=== PATIENT | female | born 1930 | race Hispanic/Latino ===

== ENCOUNTER 2018-04-10 10:40 | Inpatient (IN) | payer MEDICARE ==
[2018-04-10] MEDS ORDERED: cefTRIAXone IV 1 gm in Dextros 50 ML IVPB STA (10:57)
[2018-04-10] MEDS ORDERED: Piperacill/Tazo 3.375gm in Dex 3.375 GM/50 ML BAG IVPB STA (10:57)
--- NOTE | 2018-04-10 11:05 | C.PDOC ---
History Of Present Illness 87 y/o female, brought in by EMS s/p fall and decreased mentation at home. Patient presents febrile and tachycardia (SIRS criteria met, code sepsis called). As per daughter, she has chronic back pain and vertigo and occasionally falls. Patient fell today, unclear how or why. Last time daughter saw her was last week when they went to see Dr. Dumont, patient was fine that time. Daughter last spoke to her yesterday and patient was still fine. - HPI Time Seen by Provider: 04/10/18 10:51 Chief Complaint (Nursing): Trauma History Per: Family (Daughter) History/Exam Limitations: no limitations Onset/Duration Of Symptoms: Hrs Past Medical History Reviewed: Historical Data, Nursing Documentation, Vital Signs Vital Signs: Last Vital Signs Temp 102.7 F H 04/10/18 10:50 Pulse 113 H 04/10/18 10:50 Resp 33 H 04/10/18 10:50 BP 144/93 H 04/10/18 10:50 Pulse Ox 84 L 04/10/18 10:50 - Medical History PMH: Osteoporosis Denies: Chronic Kidney Disease Family History: States: No Known Family Hx - Social History Hx Alcohol Use: No Hx Substance Use: No Review Of Systems Review Of Systems: ROS cannot be obtained secondary to pt's inabilty to answer questions. (due to mental status) Physical Exam - Physical Exam Appears: Non-toxic, No Acute Distress Skin: Warm, Dry Head: Atraumatic, Normacephalic Eye(s): bilateral: Normal Inspection Oral Mucosa: Moist Neck: Supple Cardiovascular: Rhythm Regular (tachycardic), No Murmur Respiratory: Normal Breath Sounds, No Rales, No Rhonchi, No Wheezing Gastrointestinal/Abdominal: Soft, No Tenderness Extremity: Normal ROM (of all 4 extremities) Extremity: Bilateral: Atraumatic (no external signs of trauma), Normal ROM Neurological/Psych: Normal Motor, Normal Sensation, Slow To Respond With Command, Other (Awake; no focal deficits) ED Course And Treatment - Laboratory Results Result Diagrams: 04/10/18 10:55 04/10/18 10:55 ECG: Interpreted By Me, Viewed By Me ECG Rhythm: Sinus Tachycardia Interpretation Of ECG: No ST elevations or depressions. No flipped T waves. Rate From EC O2 Sat by Pulse Oximetry: 84 (RA) Pulse Ox Interpretation: Abnormal - Other Rad CXR X-Ray: Read By Radiologist Interpretation: Findings: Biapical pleural thickening with upper lobe granulomatous changes. Diffuse increased interstitial lung markings. Linear atelectasis at the right lung base. Enlarged ectatic aorta. Cardiomegaly. Degenerative changes in the spine and shoulders. Right paratracheal airspace opacity may represent prominent vasculature. Impression: Biapical pleural thickening with upper lobe granulomatous changes. Diffuse increased interstitial lung markings. Linear atelectasis at the right lung base. Enlarged ectatic aorta. Cardiomegaly. Degenerative changes in the spine and shoulders. Right paratracheal airspace opacity may represent prominent vasculature. - CT Scan/US Cervical Spine CT Other Rad Studies (CT/US): Read By Radiologist, Radiology Report Reviewed CT/US Interpretation: Findings: Diffuse osteopenia. Severe multilevel degenerative changes throughout the cervical spine. Narrowing at the atlantodental interval with sclerosis and bony hypertrophy. Loss of height of the inferior endplates the C5, C6, C7 vertebral bodies. Prominent multilevel posterior disc osteophyte complexes most prominent at the C3-4, C4-5, C5-6, and C6-7 levels. Anterior osteophytosis most prominent at the C4 thru C6 levels. M ultilevel uncovertebral joint and facet hypertrophy. No significant prevertebral soft tissue swelling. Prominent cerumen noted in the bilateral ear canals. Heterogeneity of the thyroid gland. Atherosclerotic calcification and plaque within the aorta. Impression: No evidence of acute displaced fracture. Severe degenerative changes of the cervical spine. If pain persists, consider correlation with MRI. Lumbar Spine CT Other Rad Studies (CT/US): Read By Radiologist, Radiology Report Reviewed CT/US Interpretation: FINDINGS: Severe anterolisthesis of L5 on S1 with associated prominent pars defects. Severe compression deformities of the T12, L1, L2, L3, and L4 vertebral bodies. These are of indeterminate chronicity. Moderate compression deformities of the T11 and L5 vertebral bodies. These are of indeterminate chronicity. Prominent multilevel posterior disc osteophyte complexes noted at the T12-L1, L1-2, L2-3, L3-4, L4-5 levels. Prominent multilevel lower level facet hypertrophy and sclerosis. Atherosclerotic calcification and plaque within the visualized aorta. Bridging sclerosis of the bilateral SI joints. [place] sacralization the left aspect of the L5 vertebral body. Dense consolidation within the left lower lobe. Tortuous ectatic aorta with atherosclerotic calcification and plaque. Few pancreatic calcifications. Small hiatal hernia. Cardiomegaly. Impression: Indeterminate chronicity multilevel compression deformities of a moderate to severe nature throughout the visualized thoracic and lumbar spine as described. Severe anterolisthesis of L5 on S1 associated prominent pars defects. Additional findings as above. Thoracic Spine CT Other Rad Studies (CT/US): Read By Radiologist, Radiology Report Reviewed CT/US Interpretation: Findings: Please see separate report for evaluation of the cervical and lumbar spines. Severe compression fracture deformities of the T5, T8 T12, and L1 vertebral bodies. Indeterminate chronicity. Moderate compr ession deformities of the T4, T6, and T11 vertebral bodies. Indeterminate chronicity. Multilevel posterior disc osteophyte complexes seen throughout the thoracic spine most prominent at the T3-4, T4-5, T5-6, T8-9, T10-11, T11-12, and T12-L1 levels. Multilevel facet hypertrophy and sclerosis. Patient is rotated in the scanner, markedly limiting evaluation. Biapical pleural thickening in the lung paige. 3 millimeter ground-glass nodule in the right upper lobe. Additional 2 millimeter subpleural nodule along the lateral aspect of the right upper lobe. Focal consolidative changes at the lung bases bilaterally. 1.3 centimeter focal area of nodular consolidation within the right lower lobe. Heterogeneity of the thyroid. Atherosclerotic calcification and plaque within the aorta. Aneurysmal prominence of the ascending aorta measuring 4.2 centimeters. Prevascular lymph node measures 1.3 centimeters. Precarinal lymph node measures 2 1 centimeters. Valvular and atherosclerotic coronary calcifications. Nodular thickening of the adrenals. Small hiatal hernia. Impression: Multiple indeterminate moderate and severe compression deformities throughout the thoracic spine as described above. Additional findings as above. Medical Decision Making Medical Decision Making: Differential Diagnosis: Sepsis/Urosepsis Plan: --VBG --EKG --Labs --Chest XR --UA --O2 NC --Zosyn IV --Rocephin IV --Lactated Ringers 1.5L Urine was normal and CXR unremarkable. Patient had positive troponin. Case discussed with Dr. 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 Progress: CT scans ordered. Patient given aspirin PO. Disposition Discussed With Dr.: Venancio A Fogari Counseled Patient/Family Regarding: Studies Performed, Diagnosis - Disposition Disposition: HOSPITALIZED Disposition Time: 12:06 Condition: GUARDED - Clinical Impression Clinical Impression: Fall, Back pain, Fever, Abnormal laboratory test - Scribe Statement The provider has reviewed the documentation as recorded by the Emma Currie Provider Attestation: All medical record entries made by the Rivkaibsheila were at my direction and personally dictated by me. I have reviewed the chart and agree that the record accurately reflects my personal performance of the history, physical exam, medical decision making, and the department course for this patient. I have also personally directed, reviewed, and agree with the discharge instructions and disposition. Decision To Admit - Pt Status Changed To: Hospital Disposition Of: Inpatient - Admit Certification Admit to Inpatient:: After my assessment, the patient will require hospitalization for at least two midnights. This is because of the severity of symptoms shown, intensity of services needed, and/or the medical risk in this patient being treated as an outpatient. - InPatient: Physician Admission Certification: I certify that this patient requires 2 or more midnights of care for the following reason:: multiple medical problems, fever, abnormal troponin - . Bed Request Type: Telemetry Patient Diagnosis: Fall, Back pain, Fever, Abnormal laboratory test
[2018-04-10 11:11] LABS: BASO % 0.5 % (0.0-2.0); EOS % 0.2 % (0.0-4.0); HEMOGLOBIN 13.8 g/dL (11.0-16.0); LYMPH # 0.6 K/uL (1.0-4.3); LYMPH % 8.4 % (20.0-40.0); MEAN CELL VOLUME 96.2 fL (81.0-99.0); MEAN CORPUSCULAR HEMOGLOBIN 32.4 pg (27.0-31.0); MEAN CORPUSCULAR HGB CONC 33.7 g/dL (33.0-37.0); MEAN PLATELET VOLUME 7.1 fL (7.2-11.7); MONO # 0.4 K/uL (0.0-0.8); MONO % 5.9 % (0.0-10.0); NEUT # 6.3 K/uL (1.8-7.0); NRBC % 0.1 % (0.0-2.0); PLATELET COUNT 157 K/uL (130-400); RBC 4.25 Mil/uL (3.80-5.20); WHITE BLOOD COUNT 7.5 K/uL (4.8-10.8)
[2018-04-10] MEDS ORDERED: Lactated Ringer's 2,000 ML ONE (11:12)
[2018-04-10] MEDS ORDERED: Piperacillin/Tazobact 3.375 gm 100 ML IVPB ONE (11:12)
[2018-04-10 11:14] LABS: VENOUS BLOOD GAS BASE EXCESS 6.6 mmol/L (0.0-2.0); VENOUS BLOOD GAS PCO2 40 mmHg (40-60); VENOUS BLOOD GAS PO2 35 mm/Hg (30-55); VENOUS BLOOD PH 7.49 (7.32-7.43)
[2018-04-10 11:28] LABS: ALB/GLOB RATIO 1.5 (1.0-2.1); ALBUMIN 4.6 g/dL (3.5-5.0); BLOOD UREA NITROGEN 27 mg/dL (7-17); CALCIUM 9.4 mg/dl (8.6-10.4); GFR NON-AFRICAN AMERICAN > 60
[2018-04-10 11:30] LABS: ALT/SGPT 24 U/L (9-52); AST/SGOT 64 U/L (14-36)
[2018-04-10 11:35] LABS: SQUAMOUS EPITHIAL < 1 /hpf (0-5); URINE BILIRUBIN NEGATIVE (NEGATIVE); URINE BLOOD NEGATIVE (NEGATIVE); URINE CLARITY Clear (Clear); URINE COLOR Straw (YELLOW); URINE GLUCOSE (UA) NORMAL (Normal); URINE LEUKOCYTE ESTERASE NEG Leu/uL (Negative); URINE PROTEIN NEGATIVE (NEGATIVE); URINE UROBILINOGEN NORMAL mg/dL (0.2-1.0)
[2018-04-10 11:38] LABS: LYMPHOCYTE 8 % (20-40); MONOCYTE 5 % (0-10); NEUTROPHIL 87 % (50-75); PLATELET ESTIMATE NORMAL (NORMAL); TOTAL CELLS COUNTED 100
[2018-04-10 11:39] LABS: ANISOCYTOSIS SLIGHT; INR 1.2; POLYCHROMIC SLIGHT; PROTHROMBIN TIME 13.1 SECONDS (9.7-12.2)
[2018-04-10 11:42] LABS: B-TYPE NATRIURETIC PEPTIDE 465 pg/mL (0-900)
--- NOTE | 2018-04-10 12:33 | RAD ---
Chest x-ray single frontal view HISTORY: Sepsis. Comparison: None available. Findings: Biapical pleural thickening with upper lobe granulomatous changes. Diffuse increased interstitial lung markings. Linear atelectasis at the right lung base. Enlarged ectatic aorta. Cardiomegaly. Degenerative changes in the spine and shoulders. Right paratracheal airspace opacity may represent prominent vasculature. Impression: Biapical pleural thickening with upper lobe granulomatous changes. Diffuse increased interstitial lung markings. Linear atelectasis at the right lung base. Enlarged ectatic aorta. Cardiomegaly. Degenerative changes in the spine and shoulders. Right paratracheal airspace opacity may represent prominent vasculature.
--- NOTE | 2018-04-10 13:50 | CT ---
CT cervical spine HISTORY: Injury. Fall. Osteoporosis. Comparison: None available. TECHNIQUE: Multiple contiguous axial images through the cervical spine without the use of intravenous contrast. Subsequently, sagittal and coronal reformatted images were obtained. This CT exam was performed using one or more of the following dose reduction techniques: Automated exposure control, adjustment of the mA and/or kV according to patient size, and/or use of iterative reconstruction technique. Findings: Diffuse osteopenia. Severe multilevel degenerative changes throughout the cervical spine. Narrowing at the atlantodental interval with sclerosis and bony hypertrophy. Loss of height of the inferior endplates the C5, C6, C7 vertebral bodies. Prominent multilevel posterior disc osteophyte complexes most prominent at the C3-4, C4-5, C5-6, and C6-7 levels. Anterior osteophytosis most prominent at the C4 thru C6 levels. Multilevel uncovertebral joint and facet hypertrophy. No significant prevertebral soft tissue swelling. Prominent cerumen noted in the bilateral ear canals. Heterogeneity of the thyroid gland. Atherosclerotic calcification and plaque within the aorta. Impression: No evidence of acute displaced fracture. Severe degenerative changes of the cervical spine. If pain persists, consider correlation with MRI.
[2018-04-10 14:13] LABS: VENOUS BLOOD GAS BASE EXCESS 2.1 mmol/L (0.0-2.0); VENOUS BLOOD GAS PCO2 35 mmHg (40-60); VENOUS BLOOD GAS PO2 51 mm/Hg (30-55); VENOUS BLOOD PH 7.47 (7.32-7.43)
--- NOTE | 2018-04-10 14:33 | CT ---
CT lumbar spine HISTORY: Injury. COMPARISON: None available TECHNIQUE: Multiple contiguous axial images were performed through the lumbar spine without the use of intravenous contrast. Subsequently, sagittal and coronal reformatted images were obtained. FINDINGS: Severe anterolisthesis of L5 on S1 with associated prominent pars defects. Severe compression deformities of the T12, L1, L2, L3, and L4 vertebral bodies. These are of indeterminate chronicity. Moderate compression deformities of the T11 and L5 vertebral bodies. These are of indeterminate chronicity. Prominent multilevel posterior disc osteophyte complexes noted at the T12-L1, L1-2, L2-3, L3-4, L4-5 levels. Prominent multilevel lower level facet hypertrophy and sclerosis. Atherosclerotic calcification and plaque within the visualized aorta. Bridging sclerosis of the bilateral SI joints. [place] sacralization the left aspect of the L5 vertebral body. Dense consolidation within the left lower lobe. Tortuous ectatic aorta with atherosclerotic calcification and plaque. Few pancreatic calcifications. Small hiatal hernia. Cardiomegaly. Impression: Indeterminate chronicity multilevel compression deformities of a moderate to severe nature throughout the visualized thoracic and lumbar spine as described. Severe anterolisthesis of L5 on S1 associated prominent pars defects. Additional findings as above.
--- NOTE | 2018-04-10 15:22 | CT ---
CT thoracic spine HISTORY: Osteoporosis. Fall. Comparison: None available Technique: Multiple contiguous axial images were performed through the thoracic spine without the use of intravenous contrast. Subsequently, sagittal and coronal reformatted images were obtained. This CT exam was performed using one or more of the following dose reduction techniques: Automated exposure control, adjustment of the mA and/or kV according to patient size, and/or use of iterative reconstruction technique. Findings: Please see separate report for evaluation of the cervical and lumbar spines. Severe compression fracture deformities of the T5, T8 T12, and L1 vertebral bodies. Indeterminate chronicity. Moderate compression deformities of the T4, T6, and T11 vertebral bodies. Indeterminate chronicity. Multilevel posterior disc osteophyte complexes seen throughout the thoracic spine most prominent at the T3-4, T4-5, T5-6, T8-9, T10-11, T11-12, and T12-L1 levels. Multilevel facet hypertrophy and sclerosis. Patient is rotated in the scanner, markedly limiting evaluation. Biapical pleural thickening in the lung paige. 3 millimeter ground-glass nodule in the right upper lobe. Additional 2 millimeter subpleural nodule along the lateral aspect of the right upper lobe. Focal consolidative changes at the lung bases bilaterally. 1.3 centimeter focal area of nodular consolidation within the right lower lobe. Heterogeneity of the thyroid. Atherosclerotic calcification and plaque within the aorta. Aneurysmal prominence of the ascending aorta measuring 4.2 centimeters. Prevascular lymph node measures 1.3 centimeters. Precarinal lymph node measures 2 1 centimeters. Valvular and atherosclerotic coronary calcifications. Nodular thickening of the adrenals. Small hiatal hernia. Impression: Multiple indeterminate moderate and severe compression deformities throughout the thoracic spine as described above. Additional findings as above.
--- NOTE | 2018-04-10 22:27 | CP.PCM.HP ---
History of Present Illness - History of Present Illness History of Present Illness: 87-year-old female who fell at home for unknown reasons and was taken by EMS to the [facility] emergency room.patient was evaluated for possible sepsis. She was also sent for CAT scans of lumbar,thoracic and cervical spine. patient was found to have numerous compression fractures. she also has elevated troponin with a normal EKG. Patient was advise admission. Cardiology consult was called with Dr uBrton. Past history includes osteoarthritis, osteoporosis, compression fracture, and hypertension. Present on Admission - Present on Admission Any Indicators Present on Admission: No History of DVT/PE: No History of Uncontrolled Diabetes: No Urinary Catheter: No Decubitus Ulcer Present: No History Surgical Site Infection Following: None Review of Systems - Review of Systems Systems not reviewed;Unavailable: Other (severe back pain) - Constitutional Constitutional: Fatigue - Cardiovascular Cardiovascular: Lightheadedness - Reproductive: Female Reproductive:Female: Post Menopausal - Musculoskeletal Musculoskeletal: Arthralgias, Back Pain - Neurological Neurological: Frequent Falls - Psychiatric Psychiatric: Anxiety Past Patient History - Infectious Disease Hx of Infectious Diseases: None - Tetanus Immunizations Tetanus Immunization: Up to Date - Past Medical History & Family History Past Medical History?: Yes - Past Social History Smoking Status: Never Smoked Chewing Tobacco Use: No Cigar Use: No Alcohol: None Drugs: Denies Home Situation {Lives}: Alone Domestic Violence: Negative - CARDIAC Hx Hypertension: Yes Other/Comment: vertigo - PULMONARY Hx Respiratory Disorders: No - NEUROLOGICAL Hx Migraine: Yes - RENAL Hx Chronic Kidney Disease: No - ENDOCRINE/METABOLIC Hx Endocrine Disorders: No - HEMATOLOGICAL/ONCOLOGICAL Hx Blood Disorders: No Hx Bruising: No Hx Leukemia: No - INTEGUMENTARY Hx Dermatological Problems: No - MUSCULOSKELETAL/RHEUMATOLOGICAL Hx Arthritis: Yes Hx Back Pain: Yes Hx Falls: Yes Hx Fractures: Yes Hx Osteoporosis: Yes - GASTROINTESTINAL Hx Gastrointestinal Disorders: No - GENITOURINARY/GYNECOLOGICAL Hx Genitourinary Disorders: No Hx Reproductive Disorders: No Hx Sexually Transmitted Disorders: No Hx Uterine Cancer: No Hx Urinary Tract Infection: No : 2 Para: 2 - PSYCHIATRIC Hx Psychophysiologic Disorder: No Hx Substance Use: No - SURGICAL HISTORY Hx Surgeries: No - ANESTHESIA Hx Anesthesia: No Meds Allergies/Adverse Reactions: Allergies Allergy/AdvReac Type Severity Reaction Status Date / Time No Known Allergies Allergy Unverified 04/10/18 10:56 Physical Exam - Constitutional Appears: Chronically Ill - Head Exam Head Exam: NORMOCEPHALIC - Eye Exam Eye Exam: Normal appearance Pupil Exam: NORMAL ACCOMODATION - ENT Exam ENT Exam: Normal Exam - Neck Exam Neck exam: Positive for: Normal Inspection - Respiratory Exam Respiratory Exam: Clear to Auscultation Bilateral - Cardiovascular Exam Cardiovascular Exam: REGULAR RHYTHM - GI/Abdominal Exam GI & Abdominal Exam: Normal Bowel Sounds - Rectal Exam Rectal Exam: Deferred - Exam External exam: NORMAL EXTERNAL EXAM - Extremities Exam Extremities exam: Positive for: normal inspection - Back Exam Back exam: paraspinal tenderness - Neurological Exam Neurological exam: Oriented x3 - Psychiatric Exam Psychiatric exam: Anxious - Skin Skin Exam: Dry Results - Vital Signs Recent Vital Signs: Last Vital Signs Temp 99.8 F H 04/10/18 20:45 Pulse 89 04/10/18 20:45 Resp 15 04/10/18 20:45 BP 127/76 04/10/18 20:45 Pulse Ox 96 04/10/18 20:45 - Labs Result Diagrams: 04/10/18 10:55 04/10/18 10:55 Labs: Laboratory Results - last 24 hr 04/10/18 04/10/18 04/10/18 10:55 10:55 10:55 WBC 7.5 RBC 4.25 Hgb 13.8 Hct 40.8 MCV 96.2 MCH 32.4 H MCHC 33.7 RDW 13.0 Plt Count 157 MPV 7.1 L Neut % (Auto) 85.0 H Lymph % (Auto) 8.4 L [place] % (Auto) 5.9 Eos % (Auto) 0.2 Baso % (Auto) 0.5 Neut # (Auto) 6.3 Lymph # (Auto) 0.6 L [place] # (Auto) 0.4 Eos # (Auto) 0.0 Baso # (Auto) 0.0 Neutrophils % (Manual) 87 H Lymphocytes % (Manual) 8 L Monocytes % (Manual) 5 Platelet Estimate Normal Polychromasia Slight Anisocytosis (manual) Slight PT 13.1 H INR 1.2 APTT 28 pO2 VBG pH VBG pCO2 VBG HCO3 VBG Total CO2 VBG O2 Sat (Calc) VBG Base Excess VBG Potassium Glucose Lactate Sodium 137 Potassium 3.8 Chloride 99 Carbon Dioxide 27 Anion Gap 15 BUN 27 H Creatinine 0.7 Est GFR ( Amer) > 60 Est GFR (Non-Af Amer) > 60 Random Glucose 127 H Calcium 9.4 Phosphorus 3.0 Magnesium 1.8 Total Bilirubin 1.4 H AST 64 H ALT 24 Alkaline Phosphatase 73 Troponin I 0.3910 H* NT-Pro-B Natriuret Pep 465 Total Protein 7.8 Albumin 4.6 Globulin 3.2 Albumin/Globulin Ratio 1.5 Venous Blood Potassium Urine Color Urine Clarity Urine pH Ur Specific [place] Urine Protein Urine Glucose (UA) Urine Ketones Urine Blood Urine Nitrate Urine Bilirubin Urine Urobilinogen Ur Leukocyte Esterase Urine WBC (Auto) Urine RBC (Auto) Ur Squamous Epith Cells Influenza Typ A,B (EIA) 04/10/18 04/10/18 04/10/18 11:08 11:22 12:18 WBC RBC Hgb Hct MCV MCH MCHC RDW Plt Count MPV Neut % (Auto) Lymph % (Auto) [place] % (Auto) Eos % (Auto) Baso % (Auto) Neut # (Auto) Lymph # (Auto) [place] # (Auto) Eos # (Auto) Baso # (Auto) Neutrophils % (Manual) Lymphocytes % (Manual) Monocytes % (Manual) Platelet Estimate Polychromasia Anisocytosis (manual) PT INR APTT pO2 35 VBG pH 7.49 H VBG pCO2 40 VBG HCO3 29.4 VBG Total CO2 31.7 H VBG O2 Sat (Calc) 72.1 H VBG Base Excess 6.6 H VBG Potassium 3.5 L Glucose 129 H Lactate 1.7 Sodium 140.0 Potassium Chloride 103.0 Carbon Dioxide Anion Gap BUN Creatinine Est GFR ( Amer) Est GFR (Non-Af Amer) Random Glucose Calcium Phosphorus Magnesium Total Bilirubin AST ALT Alkaline Phosphatase Troponin I NT-Pro-B Natriuret Pep Total Protein Albumin Globulin Albumin/Globulin Ratio Venous Blood Potassium 3.5 L Urine Color Straw Urine Clarity Clear Urine pH 8.0 Ur Specific [place] 1.012 Urine Protein Negative Urine Glucose (UA) Normal Urine Ketones Negative Urine Blood Negative Urine Nitrate Negative Urine Bilirubin Negative Urine Urobilinogen Normal Ur Leukocyte Esterase Neg Urine WBC (Auto) < 1 Urine RBC (Auto) 3 Ur Squamous Epith Cells < 1 Influenza Typ A,B (EIA) Negative for flu a/b 04/10/18 04/10/18 14:08 21:35 WBC RBC Hgb Hct MCV MCH MCHC RDW Plt Count MPV Neut % (Auto) Lymph % (Auto) [place] % (Auto) Eos % (Auto) Baso % (Auto) Neut # (Auto) Lymph # (Auto) [place] # (Auto) Eos # (Auto) Baso # (Auto) Neutrophils % (Manual) Lymphocytes % (Manual) Monocytes % (Manual) Platelet Estimate Polychromasia Anisocytosis (manual) PT INR APTT pO2 51 VBG pH 7.47 H VBG pCO2 35 L VBG HCO3 26.3 VBG Total CO2 26.6 VBG O2 Sat (Calc) 93.0 H VBG Base Excess 2.1 H VBG Potassium 3.3 L Glucose 127 H Lactate 1.9 Sodium 139.0 Potassium Chloride 107.0 Carbon Dioxide Anion Gap BUN Creatinine Est GFR ( Amer) Est GFR (Non-Af Amer) Random Glucose Calcium Phosphorus Magnesium Total Bilirubin AST ALT Alkaline Phosphatase Troponin I NT-Pro-B Natriuret Pep 1880 H Total Protein Albumin Globulin Albumin/Globulin Ratio Venous Blood Potassium 3.3 L Urine Color Urine Clarity Urine pH Ur Specific [place] Urine Protein Urine Glucose (UA) Urine Ketones Urine Blood Urine Nitrate Urine Bilirubin Urine Urobilinogen Ur Leukocyte Esterase Urine WBC (Auto) Urine RBC (Auto) Ur Squamous Epith Cells Influenza Typ A,B (EIA) Assessment & Plan (1) Compression fracture of body of thoracic vertebra Status: Acute (2) Arteriosclerotic heart disease Status: Acute (3) Osteoarth NOS-other site Status: Acute (4) Anxiety Status: Acute (5) Fever Status: Acute
[2018-04-10 23:54] LABS: CK-MB 0.92 ng/mL (0.0-3.38); TROPONIN I 0.355 ng/mL (0.00-0.120)
--- NOTE | 2018-04-11 | CP.PCM.CON ---
History of Present Illness - History of Present Illness History of Present Illness: 87 years old female felt at home, for unknown cause. Head, spine XRays revealed multiple compressions fractures. She is known to have a hypertension, a severe osteoporosis, osteoarthritis with vertebral compression fractures in the past. She denies any chest pain, shortness of breath, palpitation. Her ECG is WNL, but her serum TNI: 03. Review of Systems - Musculoskeletal Musculoskeletal: Arthralgias, Muscle Weakness - Neurological Neurological: Weakness - Psychiatric Psychiatric: Anxiety Past Patient History - Infectious Disease Hx of Infectious Diseases: None - Tetanus Immunizations Tetanus Immunization: Up to Date - Past Medical History & Family History Past Medical History?: Yes - Past Social History Smoking Status: Never Smoked Chewing Tobacco Use: No Cigar Use: No Alcohol: None Drugs: Denies Home Situation {Lives}: Alone Domestic Violence: Negative - CARDIAC Hx Hypertension: Yes Other/Comment: vertigo - PULMONARY Hx Respiratory Disorders: No - NEUROLOGICAL Hx Migraine: Yes - RENAL Hx Chronic Kidney Disease: No - ENDOCRINE/METABOLIC Hx Endocrine Disorders: No - HEMATOLOGICAL/ONCOLOGICAL Hx Blood Disorders: No Hx Bruising: No Hx Leukemia: No - INTEGUMENTARY Hx Dermatological Problems: No - MUSCULOSKELETAL/RHEUMATOLOGICAL Hx Arthritis: Yes Hx Back Pain: Yes Hx Falls: Yes Hx Fractures: Yes Hx Osteoporosis: Yes - GASTROINTESTINAL Hx Gastrointestinal Disorders: No - GENITOURINARY/GYNECOLOGICAL Hx Genitourinary Disorders: No Hx Reproductive Disorders: No Hx Sexually Transmitted Disorders: No Hx Uterine Cancer: No Hx Urinary Tract Infection: No : 2 Para: 2 - PSYCHIATRIC Hx Psychophysiologic Disorder: No Hx Substance Use: No - SURGICAL HISTORY Hx Surgeries: No - ANESTHESIA Hx Anesthesia: No Meds Allergies/Adverse Reactions: Allergies Allergy/AdvReac Type Severity Reaction Status Date / Time No Known Allergies Allergy Unverified 04/10/18 10:56 - Medications Medications: Current Medications Acetaminophen/Codeine Phosphate (Tylenol/Codeine 300 Mg/30 Mg) 1 ea PO Q4 PRN PRN Reason: Allergy symptoms Stop: 04/14/18 19:30 Enalapril Maleate (Vasotec) 10 mg PO DAILY [facility] Ergocalciferol (Drisdol 50,000 Intl Units Cap) 1 cap PO Q7D MARCELINA Hydrochlorothiazide (Hydrodiuril) 25 mg PO DAILY MARCELINA Meclizine HCl (Antivert) 12.5 mg PO DAILY MARCELINA Physical Exam - Constitutional Appears: No Acute Distress, Chronically Ill - Head Exam Head Exam: NORMAL INSPECTION - Eye Exam Eye Exam: Normal appearance - ENT Exam ENT Exam: Normal Exam - Neck Exam Neck exam: Positive for: Normal Inspection - Respiratory Exam Respiratory Exam: Clear to Auscultation Bilateral, NORMAL BREATHING PATTERN - Cardiovascular Exam Cardiovascular Exam: REGULAR RHYTHM - GI/Abdominal Exam GI & Abdominal Exam: Normal Bowel Sounds, Soft - Rectal Exam Rectal Exam: Deferred - Exam Exam: NORMAL INSPECTION - Extremities Exam Extremities exam: Positive for: normal inspection - Back Exam Back exam: NORMAL INSPECTION - Neurological Exam Neurological exam: Alert, Oriented x3 - Psychiatric Exam Psychiatric exam: Anxious - Skin Skin Exam: Dry, Intact, Normal Color, Warm Results - Vital Signs Recent Vital Signs: Last Vital Signs Temp 99.8 F H 04/10/18 20:45 Pulse 89 04/10/18 20:45 Resp 15 04/10/18 20:45 BP 127/76 04/10/18 20:45 Pulse Ox 96 04/10/18 20:45 - Labs Result Diagrams: 04/10/18 10:55 04/10/18 10:55 Labs: Laboratory Results - last 24 hr 04/10/18 04/10/18 04/10/18 10:55 10:55 10:55 WBC 7.5 RBC 4.25 Hgb 13.8 Hct 40.8 MCV 96.2 MCH 32.4 H MCHC 33.7 RDW 13.0 Plt Count 157 MPV 7.1 L Neut % (Auto) 85.0 H Lymph % (Auto) 8.4 L Person % (Auto) 5.9 Eos % (Auto) 0.2 Baso % (Auto) 0.5 Neut # (Auto) 6.3 Lymph # (Auto) 0.6 L Person # (Auto) 0.4 Eos # (Auto) 0.0 Baso # (Auto) 0.0 Neutrophils % (Manual) 87 H Lymphocytes % (Manual) 8 L Monocytes % (Manual) 5 Platelet Estimate Normal Polychromasia Slight Anisocytosis (manual) Slight PT 13.1 H INR 1.2 APTT 28 pO2 VBG pH VBG pCO2 VBG HCO3 VBG Total CO2 VBG O2 Sat (Calc) VBG Base Excess VBG Potassium Glucose Lactate Sodium 137 Potassium 3.8 Chloride 99 Carbon Dioxide 27 Anion Gap 15 BUN 27 H Creatinine 0.7 Est GFR ( Amer) > 60 Est GFR (Non-Af Amer) > 60 Random Glucose 127 H Calcium 9.4 Phosphorus 3.0 Magnesium 1.8 Total Bilirubin 1.4 H AST 64 H ALT 24 Alkaline Phosphatase 73 Total Creatine Kinase Troponin I 0.3910 H* NT-Pro-B Natriuret Pep 465 Total Protein 7.8 Albumin 4.6 Globulin 3.2 Albumin/Globulin Ratio 1.5 Venous Blood Potassium Urine Color Urine Clarity Urine pH Ur Specific [place] Urine Protein Urine Glucose (UA) Urine Ketones Urine Blood Urine Nitrate Urine Bilirubin Urine Urobilinogen Ur Leukocyte Esterase Urine WBC (Auto) Urine RBC (Auto) Ur Squamous Epith Cells Influenza Typ A,B (EIA) 04/10/18 04/10/18 04/10/18 11:08 11:22 12:18 WBC RBC Hgb Hct MCV MCH MCHC RDW Plt Count MPV Neut % (Auto) Lymph % (Auto) Person % (Auto) Eos % (Auto) Baso % (Auto) Neut # (Auto) Lymph # (Auto) Person # (Auto) Eos # (Auto) Baso # (Auto) Neutrophils % (Manual) Lymphocytes % (Manual) Monocytes % (Manual) Platelet Estimate Polychromasia Anisocytosis (manual) PT INR APTT pO2 35 VBG pH 7.49 H VBG pCO2 40 VBG HCO3 29.4 VBG Total CO2 31.7 H VBG O2 Sat (Calc) 72.1 H VBG Base Excess 6.6 H VBG Potassium 3.5 L Glucose 129 H Lactate 1.7 Sodium 140.0 Potassium Chloride 103.0 Carbon Dioxide Anion Gap BUN Creatinine Est GFR ( Amer) Est GFR (Non-Af Amer) Random Glucose Calcium Phosphorus Magnesium Total Bilirubin AST ALT Alkaline Phosphatase Total Creatine Kinase Troponin I NT-Pro-B Natriuret Pep Total Protein Albumin Globulin Albumin/Globulin Ratio Venous Blood Potassium 3.5 L Urine Color Straw Urine Clarity Clear Urine pH 8.0 Ur Specific [place] 1.012 Urine Protein Negative Urine Glucose (UA) Normal Urine Ketones Negative Urine Blood Negative Urine Nitrate Negative Urine Bilirubin Negative Urine Urobilinogen Normal Ur Leukocyte Esterase Neg Urine WBC (Auto) < 1 Urine RBC (Auto) 3 Ur Squamous Epith Cells < 1 Influenza Typ A,B (EIA) Negative for flu a/b 04/10/18 04/10/18 04/10/18 14:08 21:35 23:00 WBC RBC Hgb Hct MCV MCH MCHC RDW Plt Count MPV Neut % (Auto) Lymph % (Auto) Person % (Auto) Eos % (Auto) Baso % (Auto) Neut # (Auto) Lymph # (Auto) Person # (Auto) Eos # (Auto) Baso # (Auto) Neutrophils % (Manual) Lymphocytes % (Manual) Monocytes % (Manual) Platelet Estimate Polychromasia Anisocytosis (manual) PT INR APTT pO2 51 VBG pH 7.47 H VBG pCO2 35 L VBG HCO3 26.3 VBG Total CO2 26.6 VBG O2 Sat (Calc) 93.0 H VBG Base Excess 2.1 H VBG Potassium 3.3 L Glucose 127 H Lactate 1.9 Sodium 139.0 Potassium Chloride 107.0 Carbon Dioxide Anion Gap BUN Creatinine Est GFR ( Amer) Est GFR (Non-Af Amer) Random Glucose Calcium Phosphorus Magnesium Total Bilirubin AST ALT Alkaline Phosphatase Total Creatine Kinase 58 Troponin I NT-Pro-B Natriuret Pep 1880 H Total Protein Albumin Globulin Albumin/Globulin Ratio Venous Blood Potassium 3.3 L Urine Color Urine Clarity Urine pH Ur Specific [place] Urine Protein Urine Glucose (UA) Urine Ketones Urine Blood Urine Nitrate Urine Bilirubin Urine Urobilinogen Ur Leukocyte Esterase Urine WBC (Auto) Urine RBC (Auto) Ur Squamous Epith Cells Influenza Typ A,B (EIA) Assessment & Plan (1) Fall Status: Acute (2) Compression fracture of body of thoracic vertebra Status: Acute (3) Elevated troponin I level Status: Acute (4) Elevated troponin I level Assessment and Plan: Do serial ECG's and cardiac enzymes. Echo to assess LV wall motion. Status: Acute
[2018-04-11] MEDS: Acetaminophen-Codeine 300/30 mg Tab PO PRN ×3 (00:58→18:07)
[2018-04-11 07:31] LABS: BASO % 0.8 % (0.0-2.0); EOS # 0.3 K/uL (0.0-0.7); LYMPH # 0.9 K/uL (1.0-4.3); LYMPH % 15.6 % (20.0-40.0); MEAN CELL VOLUME 96.2 fL (81.0-99.0); MEAN CORPUSCULAR HGB CONC 33.3 g/dL (33.0-37.0); MEAN PLATELET VOLUME 7.3 fL (7.2-11.7); MONO # 0.3 K/uL (0.0-0.8); MONO % 4.6 % (0.0-10.0); NEUT # 4.3 K/uL (1.8-7.0); NRBC % 0.2 % (0.0-2.0); RBC 3.73 Mil/uL (3.80-5.20); RED CELL DISTRIBUTION WIDTH 13.3 % (11.5-14.5); WHITE BLOOD COUNT 5.8 K/uL (4.8-10.8)
[2018-04-11 07:39] LABS: INR 1.2; PROTHROMBIN TIME 13.6 SECONDS (9.7-12.2)
[2018-04-11 08:23] LABS: TROPONIN I 0.373 ng/mL (0.00-0.120)
[2018-04-11] MEDS ORDERED: Ergocalciferol 50,000 Intl Units Cap PO SCH (10:00)
--- NOTE | 2018-04-11 13:54 | CP.PCM.CON ---
History of Present Illness - History of Present Illness History of Present Illness: CONSULT DICTATED S/P FALL LOC LEFT HEMIPARESIS MRI THX SPINE BONE SCAN EEG BLADDER SONO D/W FAMILY Past Patient History - Infectious Disease Hx of Infectious Diseases: None - Tetanus Immunizations Tetanus Immunization: Up to Date - Past Medical History & Family History Past Medical History?: Yes - Past Social History Smoking Status: Never Smoked Chewing Tobacco Use: No Cigar Use: No Alcohol: None Drugs: Denies Home Situation {Lives}: Alone Domestic Violence: Negative - CARDIAC Hx Hypertension: Yes Other/Comment: vertigo - PULMONARY Hx Respiratory Disorders: No - NEUROLOGICAL Hx Migraine: Yes - HEENT Hx HEENT Problems: No - RENAL Hx Chronic Kidney Disease: No - ENDOCRINE/METABOLIC Hx Endocrine Disorders: No - HEMATOLOGICAL/ONCOLOGICAL Hx Blood Disorders: No Hx Bruising: No Hx Leukemia: No - INTEGUMENTARY Hx Dermatological Problems: No - MUSCULOSKELETAL/RHEUMATOLOGICAL Hx Arthritis: Yes Hx Back Pain: Yes Hx Falls: Yes Hx Fractures: Yes Hx Osteoporosis: Yes - GASTROINTESTINAL Hx Gastrointestinal Disorders: No - GENITOURINARY/GYNECOLOGICAL Hx Genitourinary Disorders: No Hx Reproductive Disorders: No Hx Sexually Transmitted Disorders: No Hx Uterine Cancer: No Hx Urinary Tract Infection: No : 2 Para: 2 - PSYCHIATRIC Hx Psychophysiologic Disorder: No Hx Substance Use: No - SURGICAL HISTORY Hx Surgeries: No - ANESTHESIA Hx Anesthesia: No Meds Allergies/Adverse Reactions: Allergies Allergy/AdvReac Type Severity Reaction Status Date / Time No Known Allergies Allergy Unverified 04/10/18 10:56 - Medications Medications: Current Medications Acetaminophen/Codeine Phosphate (Tylenol/Codeine 300 Mg/30 Mg) 1 ea PO Q4 PRN PRN Reason: Allergy symptoms Stop: 04/14/18 19:30 Last Admin: 04/11/18 12:35 Dose: 1 ea Enalapril Maleate (Vasotec) 10 mg PO DAILY [facility] Last Admin: 04/11/18 09:58 Dose: 10 mg Ergocalciferol (Drisdol 50,000 Intl Units Cap) 1 cap PO Q7D [facility] Last Admin: 04/11/18 09:58 Dose: 1 cap Hydrochlorothiazide (Hydrodiuril) 25 mg PO DAILY [facility] Last Admin: 04/11/18 09:58 Dose: 25 mg Meclizine HCl (Antivert) 12.5 mg PO DAILY [facility] Last Admin: 04/11/18 09:58 Dose: 12.5 mg Pneumococcal Polyvalent Vaccine (Pneumovax 23 Vaccine) 0.5 ml IM .ONCE ONE Stop: 04/12/18 14:01 Results - Vital Signs Recent Vital Signs: Last Vital Signs Temp 99.7 F H 04/11/18 07:00 Pulse 94 H 04/11/18 07:00 Resp 20 04/11/18 07:00 BP 120/70 04/11/18 09:58 Pulse Ox 95 04/11/18 07:00 - Labs Result Diagrams: 04/11/18 07:09 04/11/18 07:09 Labs: Laboratory Results - last 24 hr 04/10/18 04/10/18 04/10/18 14:08 21:35 23:00 WBC RBC Hgb Hct MCV MCH MCHC RDW Plt Count MPV Neut % (Auto) Lymph % (Auto) [place] % (Auto) Eos % (Auto) Baso % (Auto) Neut # (Auto) Lymph # (Auto) [place] # (Auto) Eos # (Auto) Baso # (Auto) Differential Comment PT INR pO2 51 VBG pH 7.47 H VBG pCO2 35 L VBG HCO3 26.3 VBG Total CO2 26.6 VBG O2 Sat (Calc) 93.0 H VBG Base Excess 2.1 H VBG Potassium 3.3 L Sodium 139.0 Chloride 107.0 Glucose 127 H Lactate 1.9 Potassium Carbon Dioxide BUN Total Creatine Kinase 58 CK-MB (Mass) 0.92 Troponin I 0.3550 H* NT-Pro-B Natriuret Pep 1880 H 25-OH Vitamin D Total Venous Blood Potassium 3.3 L 04/11/18 04/11/18 04/11/18 07:09 07:09 07:09 WBC 5.8 RBC 3.73 L Hgb 12.0 Hct 35.9 MCV 96.2 MCH 32.0 H MCHC 33.3 RDW 13.3 Plt Count 115 L D MPV 7.3 Neut % (Auto) 74.0 Lymph % (Auto) 15.6 L [place] % (Auto) 4.6 Eos % (Auto) 5.0 H Baso % (Auto) 0.8 Neut # (Auto) 4.3 Lymph # (Auto) 0.9 L [place] # (Auto) 0.3 Eos # (Auto) 0.3 Baso # (Auto) 0.0 Differential Comment PT 13.6 H INR 1.2 pO2 VBG pH VBG pCO2 VBG HCO3 VBG Total CO2 VBG O2 Sat (Calc) VBG Base Excess VBG Potassium Sodium 137 Chloride 102 Glucose Lactate Potassium 3.5 L Carbon Dioxide 28 BUN 29 H Total Creatine Kinase CK-MB (Mass) Troponin I 0.3730 H* NT-Pro-B Natriuret Pep 25-OH Vitamin D Total Venous Blood Potassium 04/11/18 08:47 WBC RBC Hgb Hct MCV MCH MCHC RDW Plt Count MPV Neut % (Auto) Lymph % (Auto) [place] % (Auto) Eos % (Auto) Baso % (Auto) Neut # (Auto) Lymph # (Auto) [place] # (Auto) Eos # (Auto) Baso # (Auto) Differential Comment PT INR pO2 VBG pH VBG pCO2 VBG HCO3 VBG Total CO2 VBG O2 Sat (Calc) VBG Base Excess VBG Potassium Sodium Chloride Glucose Lactate Potassium Carbon Dioxide BUN Total Creatine Kinase CK-MB (Mass) Troponin I NT-Pro-B Natriuret Pep 25-OH Vitamin D Total 35.2 Venous Blood Potassium
--- NOTE | 2018-04-11 17:54 | US ---
Urinary bladder ultrasound HISTORY: Retention. Comparison: None available. Technique: Real-time sonography was performed through the urinary bladder. Findings: Prevoid bladder volume of 245 cc. Patient unable to void. Postvoid residual of 245 cc. Bilateral ureteral jets were visualized. No gross urinary bladder wall thickening. No gross urinary bladder calculus identified. Impression: 245 cc postvoid residual in the urinary bladder as the patient was unable to void. Clinical correlation.
[2018-04-11] MEDS: Potassium Chloride 10 mEq ER Tab PO SCH (18:07)
--- NOTE | 2018-04-11 19:33 | CP.PCM.PN ---
Subjective - Date & Time of Evaluation Date of Evaluation: 04/11/18 Time of Evaluation: 16:30 - Subjective Subjective: patient still having severe pain over the entire cervical, thoracic and lumbar spine. Patient found to have gram-positive cocci in blood. Patient started on Rocephin 1 g every 24 hours. Patient was seen by Dr. Varma and consult appreciated. A pelvic ultrasound was requested because of pelvic pain and urinary retention. Patient is scheduled for a bone scan in the morning. She will also have an echocardiogram which was reported by Dr. Burton. Objective - Vital Signs/Intake and Output Vital Signs (last 24 hours): Temp Pulse Resp BP Pulse Ox 97.7 F 98 H 20 127/83 94 L 04/11/18 16:00 04/11/18 16:00 04/11/18 16:00 04/11/18 16:00 04/11/18 16:00 - Medications Medications: Current Medications Acetaminophen/Codeine Phosphate (Tylenol/Codeine 300 Mg/30 Mg) 1 ea PO Q4 PRN PRN Reason: Allergy symptoms Stop: 04/14/18 19:30 Last Admin: 04/11/18 18:07 Dose: 1 ea Enalapril Maleate (Vasotec) 10 mg PO DAILY [facility] Last Admin: 04/11/18 09:58 Dose: 10 mg Ergocalciferol (Drisdol 50,000 Intl Units Cap) 1 cap PO Q7D [facility] Last Admin: 04/11/18 09:58 Dose: 1 cap Hydrochlorothiazide (Hydrodiuril) 25 mg PO DAILY [facility] Last Admin: 04/11/18 09:58 Dose: 25 mg Ceftriaxone Sodium 1 gm/ (Sodium Chloride) 100 mls @ 100 mls/hr IVPB DAILY [facility]; Protocol Last Admin: 04/11/18 18:07 Dose: 100 mls/hr Meclizine HCl (Antivert) 12.5 mg PO DAILY [facility] Last Admin: 04/11/18 09:58 Dose: 12.5 mg Pneumococcal Polyvalent Vaccine (Pneumovax 23 Vaccine) 0.5 ml IM .ONCE ONE Stop: 04/12/18 14:01 Potassium Chloride (Klor-Con 10) 10 meq PO BRK MARCELINA Stop: 04/16/18 18:01 Last Admin: 04/11/18 18:07 Dose: 10 meq - Labs Labs: 04/11/18 07:09 04/11/18 07:09 PT 13.6 SECONDS (9.7-12.2) H 04/11/18 07:09 INR 1.2 04/11/18 07:09 APTT 28 SECONDS (21-34) 04/10/18 10:55 - Constitutional Appears: Chronically Ill - Head Exam Head Exam: NORMOCEPHALIC - Eye Exam Eye Exam: Normal appearance Pupil Exam: NORMAL ACCOMODATION - ENT Exam ENT Exam: Normal Exam - Neck Exam Neck Exam: Normal Inspection - Respiratory Exam Respiratory Exam: Decreased Breath Sounds - GI/Abdominal Exam GI & Abdominal Exam: Normal Bowel Sounds - Rectal Exam Rectal Exam: Deferred - Extremities Exam Extremities Exam: Tenderness - Back Exam Back Exam: paraspinal tenderness, vertebral tenderness - Neurological Exam Neurological Exam: Oriented x3 - Psychiatric Exam Psychiatric exam: Anxious - Skin Skin Exam: Dry Assessment and Plan (1) Compression fracture of body of thoracic vertebra Status: Acute (2) Arteriosclerotic heart disease Status: Acute (3) Osteoarth NOS-other site Status: Acute (4) Anxiety Status: Acute (5) Fever Status: Acute
--- NOTE | 2018-04-11 22:52 | CP.PCM.PN ---
Subjective - Date & Time of Evaluation Date of Evaluation: 04/11/18 Time of Evaluation: 18:30 - Subjective Subjective: Patient complaining of left hand weakness. Blood culture revealed G(-) angelo. Serum TNI still slightly elevated. Awaiting echocardiogram. Objective - Vital Signs/Intake and Output Vital Signs (last 24 hours): Temp Pulse Resp BP Pulse Ox 97.7 F 109 H 20 127/83 94 L 04/11/18 16:00 04/11/18 16:00 04/11/18 16:00 04/11/18 16:00 04/11/18 16:00 Intake and Output: 04/11/18 04/12/18 18:59 06:59 Intake Total 200 Balance 200 - Medications Medications: Current Medications Acetaminophen/Codeine Phosphate (Tylenol/Codeine 300 Mg/30 Mg) 1 ea PO Q4 PRN PRN Reason: Allergy symptoms Stop: 04/14/18 19:30 Last Admin: 04/11/18 18:07 Dose: 1 ea Enalapril Maleate (Vasotec) 10 mg PO DAILY [facility] Last Admin: 04/11/18 09:58 Dose: 10 mg Ergocalciferol (Drisdol 50,000 Intl Units Cap) 1 cap PO Q7D [facility] Last Admin: 04/11/18 09:58 Dose: 1 cap Hydrochlorothiazide (Hydrodiuril) 25 mg PO DAILY [facility] Last Admin: 04/11/18 09:58 Dose: 25 mg Ceftriaxone Sodium 1 gm/ (Sodium Chloride) 100 mls @ 100 mls/hr IVPB DAILY [facility]; Protocol Last Admin: 04/11/18 18:07 Dose: 100 mls/hr Meclizine HCl (Antivert) 12.5 mg PO DAILY [facility] Last Admin: 04/11/18 09:58 Dose: 12.5 mg Pneumococcal Polyvalent Vaccine (Pneumovax 23 Vaccine) 0.5 ml IM .ONCE ONE Stop: 04/12/18 14:01 Potassium Chloride (Klor-Con 10) 10 meq PO BRK [facility] Stop: 04/16/18 18:01 Last Admin: 04/11/18 18:07 Dose: 10 meq - Labs Labs: 04/11/18 07:09 04/11/18 07:09 PT 13.6 SECONDS (9.7-12.2) H 04/11/18 07:09 INR 1.2 04/11/18 07:09 APTT 28 SECONDS (21-34) 04/10/18 10:55 - Constitutional Appears: No Acute Distress, Chronically Ill - Head Exam Head Exam: NORMOCEPHALIC - Eye Exam Eye Exam: Normal appearance - ENT Exam ENT Exam: Normal Exam - Neck Exam Neck Exam: Normal Inspection - Respiratory Exam Respiratory Exam: Clear to Ausculation Bilateral - Cardiovascular Exam Cardiovascular Exam: REGULAR RHYTHM - GI/Abdominal Exam GI & Abdominal Exam: Soft, Normal Bowel Sounds - Rectal Exam Rectal Exam: Deferred - Extremities Exam Extremities Exam: Normal Inspection - Back Exam Back Exam: NORMAL INSPECTION - Neurological Exam Neurological Exam: Alert, Awake, Oriented x3 - Psychiatric Exam Psychiatric exam: Anxious - Skin Skin Exam: Dry, Intact, Warm Assessment and Plan (1) Fall Status: Acute (2) Compression fracture of body of thoracic vertebra Status: Acute (3) Elevated troponin I level Status: Acute (4) Bacteremia Assessment & Plan: On IV Rocephin. Status: Acute
--- NOTE | 2018-04-12 04:24 | CON ---
DATE: 04/11/2018 REASON FOR RE-CONSULTATION: Status post fall, syncope and compression fracture. HISTORY OF PRESENT ILLNESS Ms. Madalyn Stanford is an 87-year-old right-handed female presenting with frequent falls and known history of multiple fractures in her back. With this fall, the patient lost consciousness as well as she could not recall how she fell down. At that time, her brother came in. She was lying down in the bed and she told that she passed out from the fall. No history of head trauma. No history of witnessed tonic-clonic activities associating this fall. However, from the fall, family noticed her left side is weaker than her right side. No history of urinary incontinence or fecal incontinence. PAST MEDICAL HISTORY: Osteoporosis, otherwise she is healthy. PERSONAL AND SOCIAL HISTORY: She ambulates with mild assistance at home. She lives alone. ALLERGIES: NO KNOWN ALLERGIES. REVIEW OF SYSTEMS: 12-point system being reviewed. From neuro, syncopal attack and frequent fall. MEDICATIONS: Antivert, Drisdol, HydroDIURIL, Tylenol with Codeine and Vasotec. PHYSICAL EXAMINATION: VITAL SIGNS: Blood pressure 126/70, mean artery pressure of 88, respiratory rate 18, temperature 99.7 with a pulse rate 94. NECK: Restricted movement due to the pain. SPINE: Significant tenderness over the thoracic area and lumbar region. HEART: Sounds are regular. MENTAL STATUS: She was examined in the presence of her daughter for interpretation. She is awake. She knows she is in the hospital. Speech is fluent. She has significant right and left confusion. CRANIAL NERVES: Visual field respond to visual threat. Pupils reactive to light. Extraocular movements decreased in all direction. No facial sensory deficit. No facial asymmetry. Hearing seems to be intact. MOTOR: Significant weakness on the left side, pain with weakness. She could not able to lift her arm, however, she could able to lift her left leg, and some weakness on her left side to compare with the right side. DEEP TENDON REFLEXES: Biceps, brachioradialis, triceps 2+ on either side, left knee 3+, right knee 2+. The plantars are upgoing on both sides. SENSORY: No dermatomal sensory loss. No sensory level. Significant posterior column dysfunction in both lower extremities. COORDINATION: Pain limited exam. 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 However, central causes should be ruled out such as stroke vs mass. In the current examination, cordcompression and urinary retention should be worked up. The patient also presenting with a significant distal sensory motor neuropathy. Considering her CT scan finding and multiple fractures, the patient should be worked up for underlying malignancy as well. LABORATORY DATA: WBC 5.8, hemoglobin 12, hematocrit 35.9 and platelet 115. Sodium 137, potassium 3.5, chloride 102, bicarbonate of 28 be BUN 27, creatinine 0.7 and GFR more than 60. Troponin shows 0.3730. Urinalysis shows negative. Her CT of the cervical spine shows significant degenerative disease, thoracic spine showed multilevel fractures, more pronounced atT3-T12 level. Lumbosacral spine showed significant degenerative disease. RECOMMENDATIONS: 1. The patient's condition being discussed extensively with her family members. The patient should have MRI of the thoracic spine to rule out cord compression. 2. Bladder sonogram to rule out retention of the urine. 3. Bone scan to rule out any underlying malignancy versus multiple myeloma. 4. If no confirmeative diagnosis, recommend mri Brain The patient should be bed at bedrest, DVT prophylaxis, pain management. The patient will be followed while she is in the hospital. Zaid Vicente MD [facility]
[2018-04-12] MEDS: Potassium Chloride 10 mEq ER Tab PO SCH (09:10)
--- NOTE | 2018-04-12 10:18 | PN ---
DATE: 04/12/2018 NEUROLOGICAL PROBLEM: Multiple thoracic vertebral fractures with possible cord compression, left hemiparesis. PHYSICAL EXAMINATION: VITAL SIGNS: Blood pressure 124/75, mean arterial pressure of 91, respiratory rate 18, temperature 98 degrees Fahrenheit with pulse rate 85 and regular. The patient lying down comfortably; however, mumbling with her pain, moves all four extremities. Rest of the examination, which is unchanged. ASSESSMENT AND PLAN: The patient's workup is on progress. The patient will be followed closely. Zaid Vicente MD
[2018-04-12] MEDS: Acetaminophen-Codeine 300/30 mg Tab PO PRN ×3 (11:30→19:21)
[2018-04-12] MEDS ORDERED: Pneumococcal 23-Valent Vaccine IM ONE (14:00)
--- NOTE | 2018-04-12 15:34 | RAD ---
Date of service: 04/12/2018 PROCEDURE: Radiographs of the Left Shoulder HISTORY: fracture COMPARISON: No prior. FINDINGS: BONES: Normal. No fracture. JOINTS: Normal. Glenohumeral and acromioclavicular joints preserved. No osteoarthritis. SOFT TISSUES: Normal. OTHER FINDINGS: None. IMPRESSION: Normal radiographs of the left shoulder.
--- NOTE | 2018-04-12 16:11 | NM ---
Date of service: 04/12/2018 PROCEDURE: Whole Body Bone Scan HISTORY: r/o mets COMPARISON: April 11, 2018. Bone survey 04/10/2018 MRI cervical, thoracic and lumbar spines. TECHNIQUE: Following administration of 23.6 miCu of Tc MDP multiplanar whole body images were obtained. FINDINGS: Evidence for bony metastatic disease: None. Degenerative uptake: Upper extremities including hands and wrists. Lower extremity primarily knees and feet. Physiologic uptake: Normal physiologic activity in the kidneys. Other findings: Foci of subtle increased uptake thoracic spine conforming to compression deformities identified on MRI examinations and bone surveys. Increased uptake posterior left 10th rib likely posttraumatic. IMPRESSION: No evidence of bony metastatic disease.
[2018-04-12] MEDS ORDERED: Gadodiamide 287 MG/ML VIAL (15ML) IV ONE (16:16)
--- NOTE | 2018-04-12 17:29 | RAD ---
Date of service: 04/12/2018 PROCEDURE: Bone survey HISTORY: r/o punched out lesion COMPARISON: None TECHNIQUE: Standard protocol for this study/examination. FINDINGS: No lytic nor blastic lesions are identified in the visualized axial and appendicular skeleton. Profound osteopenia. Multiple compression deformities in the thoracic and lumbar spine. IMPRESSION: Diffuse osteopenia, multiple thoracolumbar compression deformities. No focal lytic or blastic abnormalities
--- NOTE | 2018-04-12 18:56 | CARD ---
APPROVED REPORT Date of service: 04/12/2018 EXAM: Two-dimensional and M-mode echocardiogram with Doppler and color Doppler. Other Information Quality : GoodRhythm : INDICATION becteremia RISK FACTORS Hypertension 2D DIMENSIONS IVSd0.9 (0.7-1.1cm)LVDd4.3 (3.9-5.9cm) PWd0.8 (0.7-1.1cm)LA Bkuesi28 (18-58mL) LVDs3.1 (2.5-4.0cm)FS (%) 27.8 % LVEF (%)70.0 (>50%)LVEF (Doyle's)71.42 % IVC0.00 cm M-Mode DIMENSIONS RVDd2.20 (2.1-3.2cm)Left Atrium (MM)2.79 (2.5-4.0cm) IVSd0.85 (0.7-1.1cm)Aortic Root2.96 (2.2-3.7cm) LVDd4.71 (4.0-5.6cm)Aortic Cusp Exc.1.91 (1.5-2.0cm) PWd0.73 (0.7-1.1cm)FS (%) 39 % LVDs2.88 (2.0-3.8cm)LVEF (%)69 (>50%) Aortic Valve AI P 1/2 [id number] Mitral Valve MV E Crfubnac22.1cm/sMV A Otrmcfqs56.9cm/sE/A ratio0.6 TDI Lateral E' Peak V10.38cm/sMedial E' Peak V3.96cm/sE/Lateral E'5.1 E/Medial E'13.4 Tricuspid Valve TR Peak Nldvlufz508bw/sTR Peak Gr.[id number] LEFT VENTRICLE The left ventricle is normal size. There is normal left ventricular wall thickness. The left ventricular function is normal. The left ventricular ejection fraction is within the normal range. There is normal LV segmental wall motion. Transmitral Doppler flow pattern is abnormal. RIGHT VENTRICLE The right ventricle is normal size. ATRIA The left atrium size is normal. The right atrium size is normal. AORTIC VALVE There is mild aortic regurgitation. MITRAL VALVE Mitral regurgitation is mild. TRICUSPID VALVE There is moderate tricuspid regurgitation. <Conclusion> Normal LV systolic function. Diastolic dysfunction. Normal chamber size. Mild AR. Mild MR. Moderate TR.
--- NOTE | 2018-04-12 22:03 | CP.PCM.PN ---
Subjective - Date & Time of Evaluation Date of Evaluation: 04/12/18 Time of Evaluation: 16:45 - Subjective Subjective: Patient has no complaint of chest pain or shortness of breath. Echo: normal LV systolic wall motion with a grade I diastolic dysfunction. Mild MR, TR, AI with mild sclerosis of the aortic valve.the mitral annulus. Objective - Vital Signs/Intake and Output Vital Signs (last 24 hours): Temp Pulse Resp BP Pulse Ox 98.1 F 79 20 137/75 95 04/12/18 16:40 04/12/18 16:40 04/12/18 16:40 04/12/18 16:40 04/12/18 16:40 - Medications Medications: Current Medications Acetaminophen/Codeine Phosphate (Tylenol/Codeine 300 Mg/30 Mg) 1 ea PO Q4 PRN PRN Reason: Allergy symptoms Stop: 04/14/18 19:30 Last Admin: 04/12/18 19:21 Dose: 1 ea Enalapril Maleate (Vasotec) 10 mg PO DAILY [facility] Last Admin: 04/12/18 11:22 Dose: 10 mg Ergocalciferol (Drisdol 50,000 Intl Units Cap) 1 cap PO Q7D [facility] Last Admin: 04/11/18 09:58 Dose: 1 cap Hydrochlorothiazide (Hydrodiuril) 25 mg PO DAILY [facility] Last Admin: 04/12/18 11:22 Dose: 25 mg Ceftriaxone Sodium 1 gm/ (Sodium Chloride) 100 mls @ 100 mls/hr IVPB DAILY [facility]; Protocol Last Admin: 04/12/18 11:21 Dose: 100 mls/hr Meclizine HCl (Antivert) 12.5 mg PO DAILY [facility] Last Admin: 04/12/18 11:22 Dose: 12.5 mg Potassium Chloride (Klor-Con 10) 10 meq PO BRK [facility] Stop: 04/16/18 18:01 Last Admin: 04/12/18 09:10 Dose: 10 meq - Labs Labs: 04/11/18 07:09 04/11/18 07:09 PT 13.6 SECONDS (9.7-12.2) H 04/11/18 07:09 INR 1.2 04/11/18 07:09 APTT 28 SECONDS (21-34) 04/10/18 10:55 - Constitutional Appears: No Acute Distress, Chronically Ill - Head Exam Head Exam: NORMAL INSPECTION - Eye Exam Eye Exam: Normal appearance Pupil Exam: NORMAL ACCOMODATION - ENT Exam ENT Exam: Normal Exam - Neck Exam Neck Exam: Normal Inspection - Respiratory Exam Respiratory Exam: Clear to Ausculation Bilateral, NORMAL BREATHING PATTERN - Cardiovascular Exam Cardiovascular Exam: REGULAR RHYTHM - GI/Abdominal Exam GI & Abdominal Exam: Soft, Normal Bowel Sounds - Rectal Exam Rectal Exam: Deferred - Exam Exam: NORMAL INSPECTION - Extremities Exam Extremities Exam: Normal Inspection - Back Exam Back Exam: NORMAL INSPECTION - Neurological Exam Neurological Exam: Alert, Awake - Psychiatric Exam Psychiatric exam: Anxious - Skin Skin Exam: Dry, Normal Color, Warm Assessment and Plan (1) Fall Status: Acute (2) Compression fracture of body of thoracic vertebra Status: Acute (3) Elevated troponin I level Status: Acute (4) Bacteremia Status: Acute
--- NOTE | 2018-04-12 22:35 | CP.PCM.PN ---
Subjective - Date & Time of Evaluation Date of Evaluation: 04/12/18 Time of Evaluation: 12:40 - Subjective Subjective: patient still has back pain. She is now in the nuclear medicine department getting a bone scan. Patient is scheduled for an echocardiogram. Dr. Burton will evaluate the results. Continue antibiotic therapy Objective - Vital Signs/Intake and Output Vital Signs (last 24 hours): Temp Pulse Resp BP Pulse Ox 98.1 F 79 20 137/75 95 04/12/18 16:40 04/12/18 16:40 04/12/18 16:40 04/12/18 16:40 04/12/18 16:40 - Medications Medications: Current Medications Acetaminophen/Codeine Phosphate (Tylenol/Codeine 300 Mg/30 Mg) 1 ea PO Q4 PRN PRN Reason: Allergy symptoms Stop: 04/14/18 19:30 Last Admin: 04/12/18 19:21 Dose: 1 ea Enalapril Maleate (Vasotec) 10 mg PO DAILY [facility] Last Admin: 04/12/18 11:22 Dose: 10 mg Ergocalciferol (Drisdol 50,000 Intl Units Cap) 1 cap PO Q7D [facility] Last Admin: 04/11/18 09:58 Dose: 1 cap Hydrochlorothiazide (Hydrodiuril) 25 mg PO DAILY [facility] Last Admin: 04/12/18 11:22 Dose: 25 mg Ceftriaxone Sodium 1 gm/ (Sodium Chloride) 100 mls @ 100 mls/hr IVPB DAILY [facility]; Protocol Last Admin: 04/12/18 11:21 Dose: 100 mls/hr Meclizine HCl (Antivert) 12.5 mg PO DAILY [facility] Last Admin: 04/12/18 11:22 Dose: 12.5 mg Potassium Chloride (Klor-Con 10) 10 meq PO BRK [facility] Stop: 04/16/18 18:01 Last Admin: 04/12/18 09:10 Dose: 10 meq - Labs Labs: 04/11/18 07:09 04/11/18 07:09 PT 13.6 SECONDS (9.7-12.2) H 04/11/18 07:09 INR 1.2 04/11/18 07:09 APTT 28 SECONDS (21-34) 04/10/18 10:55 - Constitutional Appears: Chronically Ill - Head Exam Head Exam: NORMOCEPHALIC - Eye Exam Eye Exam: Normal appearance Pupil Exam: NORMAL ACCOMODATION - ENT Exam ENT Exam: Normal Exam - Neck Exam Neck Exam: Normal Inspection - Respiratory Exam Respiratory Exam: Decreased Breath Sounds - Cardiovascular Exam Cardiovascular Exam: REGULAR RHYTHM - GI/Abdominal Exam GI & Abdominal Exam: Normal Bowel Sounds - Extremities Exam Extremities Exam: Tenderness - Back Exam Back Exam: NORMAL INSPECTION, paraspinal tenderness, vertebral tenderness - Neurological Exam Neurological Exam: Awake - Psychiatric Exam Psychiatric exam: Depressed Assessment and Plan (1) Compression fracture of body of thoracic vertebra Status: Acute (2) Arteriosclerotic heart disease Status: Acute (3) Osteoarth NOS-other site Status: Acute (4) Anxiety Status: Acute (5) Fever Status: Acute
[2018-04-13] MEDS: Acetaminophen-Codeine 300/30 mg Tab PO PRN ×3 (03:48→22:22)
[2018-04-13 07:34] LABS: BLOOD UREA NITROGEN 32 mg/dL (7-17); CALCIUM 8.6 mg/dl (8.6-10.4); GFR NON-AFRICAN AMERICAN > 60
[2018-04-13] MEDS: Potassium Chloride 10 mEq ER Tab PO SCH (08:24)
--- NOTE | 2018-04-13 08:27 | PN ---
DATE: 04/13/2018 NEUROLOGICAL PROBLEM: Multiple fractures rule out cord compression. OBJECTIVE: VITAL SIGNS: Blood pressure 123/74, mean artery pressure of 90, respiratory rate 18, pulse rate 72 regular, temperature 97.3. NEUROLOGICAL: The patient is awake, alert, communicable in Sami, moves all four extremities against the gravity. Examination which is unchanged consistent with left mild hemiparesis and bilateral Babinski sign. DIAGNOSTIC AND LABORATORY DATA: Her recent MRI of the thoracic spine being reviewed. No clear evidence of cord compression except multiple level bone pathology with pathological fractures noted. Blood workup, WBC 5.8, hemoglobin 12, hematocrit 35.9, platelet 115. PT 13.6, INR 1.2. Sodium 137, potassium 3.5, troponin 0.3730, BUN 29, creatinine not available. Urine shows protein level 286. Bone scan no malignancy noted. Bone density shows no focal lytic or blastic abnormalities noted. Significant osteopenia. RECOMMENDATIONS: 1. MRI of the brain recommended to rule out any hidden ischemic process. 2. Electroencephalogram is still pending. Continue the present management with DVT prophylaxis. The patient will be followed closely with you. Zaid Vicente MD
[2018-04-13 14:18] LABS: TROPONIN I 0.093 ng/mL (0.00-0.120)
--- NOTE | 2018-04-13 16:34 | MRI ---
Date of service: 04/12/2018 PROCEDURE: MR THORACIC SPINE WITH AND WITHOUT CONTRAST HISTORY: Rule out cord compression. COMPARISON: None available. TECHNIQUE: Multiecho multiplanar sequences were performed through the thoracic spine with and without the use of intravenous contrast. 9 cc of Omniscan contrast material injected for this examination FINDINGS: There are multilevel endplate compression fractures seen throughout the thoracic spine with near vertebral plana involving the T8 and T5 segments.. The remaining vertebral bodies is segments exhibit varying degrees of mild to significant biconcave endplate compression fractures most notably affecting the T12 and L1 segments and less so the remaining segments. The there is some minimal residual edema seen in the T4 segment suggesting subacute fracture which is associated with mild contrast enhancement on the postcontrast sequences.. The remaining fractures are chronic in appearance.. All these fractures are felt to be due to diffuse demineralization-osteopenia. No underlying suspicious lytic or blastic lesions are identified. There is some very minimal retropulsion of the mid posterior cortex of the T5 segment.. No additional focal areas of abnormal contrast enhancement are identified.. No evidence of discitis osteomyelitis. Multilevel degenerative spondylosis is present. Changes include varying degrees of disc desiccation. Small posterior osteophytes are seen at several lower thoracic levels along with broad-based disc bulging however none of these changes result in significant canal compromise nor cord compression. No evidence of abnormal signal or contrast enhancement identified within the spinal cord. Note also made of multilevel degenerative spondylosis in the lower cervical spine. OTHER FINDINGS: None.. IMPRESSION: There are multilevel chronic compression fractures. All of these are chronic with exception of the T4 segment which exhibits mild residual edema and associated contrast enhancement consistent with subacute compression fracture. These fractures are felt to be due to diffuse demineralization/osteopenia no evidence of lytic or blastic lesions identified. Multilevel degenerative spondylosis however no evidence of significant canal compromise nor cord compression.
--- NOTE | 2018-04-13 18:56 | CP.PCM.PN ---
Subjective - Date & Time of Evaluation Date of Evaluation: 04/13/18 Time of Evaluation: 18:53 - Subjective Subjective: Patient still with left sided weakness, afebrile, has no complaint of chest or SOB. Serum TNI now normal. Head MRI result pending. Objective - Vital Signs/Intake and Output Vital Signs (last 24 hours): Temp Pulse Resp BP Pulse Ox 98.4 F 91 H 18 149/83 92 L 04/13/18 17:48 04/13/18 17:48 04/13/18 17:48 04/13/18 17:48 04/13/18 17:48 Intake and Output: 04/13/18 04/13/18 06:59 18:59 Intake Total 200 Output Total 450 Balance 200 -450 - Medications Medications: Current Medications Acetaminophen/Codeine Phosphate (Tylenol/Codeine 300 Mg/30 Mg) 1 ea PO Q4 PRN PRN Reason: FOR PAIN Stop: 04/14/18 19:30 Enalapril Maleate (Vasotec) 10 mg PO DAILY [facility] Last Admin: 04/13/18 10:57 Dose: 10 mg Ergocalciferol (Drisdol 50,000 Intl Units Cap) 1 cap PO Q7D [facility] Last Admin: 04/11/18 09:58 Dose: 1 cap Hydrochlorothiazide (Hydrodiuril) 25 mg PO DAILY [facility] Last Admin: 04/13/18 10:57 Dose: 25 mg Ceftriaxone Sodium 1 gm/ (Sodium Chloride) 100 mls @ 100 mls/hr IVPB DAILY [facility]; Protocol Last Admin: 04/13/18 10:56 Dose: 100 mls/hr Meclizine HCl (Antivert) 12.5 mg PO DAILY [facility] Last Admin: 04/13/18 10:57 Dose: 12.5 mg Potassium Chloride (Klor-Con 10) 10 meq PO BRK [facility] Stop: 04/16/18 18:01 Last Admin: 04/13/18 08:24 Dose: 10 meq - Labs Labs: 04/11/18 07:09 04/13/18 06:52 PT 13.6 SECONDS (9.7-12.2) H 04/11/18 07:09 INR 1.2 04/11/18 07:09 APTT 28 SECONDS (21-34) 04/10/18 10:55 - Constitutional Appears: No Acute Distress, Chronically Ill - Head Exam Head Exam: NORMOCEPHALIC - Eye Exam Eye Exam: Normal appearance - ENT Exam ENT Exam: Normal Exam - Neck Exam Neck Exam: Normal Inspection - Respiratory Exam Respiratory Exam: Clear to Ausculation Bilateral, NORMAL BREATHING PATTERN - Cardiovascular Exam Cardiovascular Exam: REGULAR RHYTHM - GI/Abdominal Exam GI & Abdominal Exam: Soft, Normal Bowel Sounds - Rectal Exam Rectal Exam: Deferred - Extremities Exam Additional comments: Mild left sised weakness. - Neurological Exam Neurological Exam: Alert, Awake Additional comments: Mild left sided weakness. - Psychiatric Exam Psychiatric exam: Anxious - Skin Skin Exam: Dry, Intact, Normal Color Assessment and Plan (1) Fall Status: Acute (2) Compression fracture of body of thoracic vertebra Status: Acute (3) Elevated troponin I level Status: Resolved (4) Bacteremia Assessment & Plan: On IV Rocephin Status: Acute
--- NOTE | 2018-04-13 22:01 | CP.PCM.PN ---
Subjective - Date & Time of Evaluation Date of Evaluation: 04/13/18 Time of Evaluation: 13:10 - Subjective Subjective: patient will responsive today. She was able to get out of bed with assistance and use a commode. Patient still has left-sided weakness. Patient is scheduled for MRI of the brain today. patient was evaluated by Dr Burton. Objective - Vital Signs/Intake and Output Vital Signs (last 24 hours): Temp Pulse Resp BP Pulse Ox 98.4 F 91 H 18 149/83 92 L 04/13/18 17:48 04/13/18 17:48 04/13/18 17:48 04/13/18 17:48 04/13/18 17:48 Intake and Output: 04/13/18 04/14/18 18:59 06:59 Output Total 450 Balance -450 - Medications Medications: Current Medications Acetaminophen/Codeine Phosphate (Tylenol/Codeine 300 Mg/30 Mg) 1 ea PO Q4 PRN PRN Reason: FOR PAIN Stop: 04/14/18 19:30 Enalapril Maleate (Vasotec) 10 mg PO DAILY [facility] Last Admin: 04/13/18 10:57 Dose: 10 mg Ergocalciferol (Drisdol 50,000 Intl Units Cap) 1 cap PO Q7D [facility] Last Admin: 04/11/18 09:58 Dose: 1 cap Hydrochlorothiazide (Hydrodiuril) 25 mg PO DAILY [facility] Last Admin: 04/13/18 10:57 Dose: 25 mg Ceftriaxone Sodium 1 gm/ (Sodium Chloride) 100 mls @ 100 mls/hr IVPB DAILY [facility]; Protocol Last Admin: 04/13/18 10:56 Dose: 100 mls/hr Meclizine HCl (Antivert) 12.5 mg PO DAILY [facility] Last Admin: 04/13/18 10:57 Dose: 12.5 mg Potassium Chloride (Klor-Con 10) 10 meq PO BRK [facility] Stop: 04/16/18 18:01 Last Admin: 04/13/18 08:24 Dose: 10 meq - Labs Labs: 04/11/18 07:09 04/13/18 06:52 PT 13.6 SECONDS (9.7-12.2) H 04/11/18 07:09 INR 1.2 04/11/18 07:09 APTT 28 SECONDS (21-34) 04/10/18 10:55 - Constitutional Appears: Chronically Ill - Head Exam Head Exam: NORMOCEPHALIC - Eye Exam Eye Exam: PERRL Pupil Exam: NORMAL ACCOMODATION - ENT Exam ENT Exam: Normal Exam - Neck Exam Neck Exam: Normal Inspection - Respiratory Exam Respiratory Exam: Decreased Breath Sounds - Cardiovascular Exam Cardiovascular Exam: REGULAR RHYTHM - GI/Abdominal Exam GI & Abdominal Exam: Normal Bowel Sounds - Rectal Exam Rectal Exam: Deferred - Exam External exam: NORMAL EXTERNAL EXAM - Extremities Exam Extremities Exam: Tenderness - Back Exam Back Exam: paraspinal tenderness - Neurological Exam Neurological Exam: Awake - Psychiatric Exam Psychiatric exam: Depressed - Skin Skin Exam: Dry Assessment and Plan (1) Compression fracture of body of thoracic vertebra Status: Acute (2) Arteriosclerotic heart disease Status: Acute (3) Osteoarth NOS-other site Status: Acute (4) Anxiety Status: Acute (5) Fever Status: Acute
[2018-04-14] MEDS: Acetaminophen-Codeine 300/30 mg Tab PO PRN ×3 (06:23→19:33)
[2018-04-14 06:28] LABS: ALBUMIN (PEP) 3.2 g/dL (3.8-4.8); ALPHA-1-GLOBULIN (PEP) 0.3 g/dL (0.2-0.3)
[2018-04-14 07:10] LABS: BLOOD UREA NITROGEN 30 mg/dL (7-17); CALCIUM 8.9 mg/dl (8.6-10.4); GFR NON-AFRICAN AMERICAN > 60
[2018-04-14 07:18] LABS: EOS # 0.3 K/uL (0.0-0.7); EOS % 7.7 % (0.0-4.0); HEMOGLOBIN 12.3 g/dL (11.0-16.0); LYMPH # 0.8 K/uL (1.0-4.3); LYMPH % 18.8 % (20.0-40.0); MEAN CELL VOLUME 96.3 fL (81.0-99.0); MEAN CORPUSCULAR HEMOGLOBIN 32.6 pg (27.0-31.0); MEAN CORPUSCULAR HGB CONC 33.9 g/dL (33.0-37.0); MEAN PLATELET VOLUME 7.3 fL (7.2-11.7); MONO # 0.5 K/uL (0.0-0.8); MONO % 12.1 % (0.0-10.0); NEUT # 2.6 K/uL (1.8-7.0); NEUT % 60.4 % (50.0-75.0); RBC 3.78 Mil/uL (3.80-5.20); RED CELL DISTRIBUTION WIDTH 12.6 % (11.5-14.5); WHITE BLOOD COUNT 4.3 K/uL (4.8-10.8)
[2018-04-14] MEDS: Potassium Chloride 10 mEq ER Tab PO SCH (09:19)
--- NOTE | 2018-04-14 10:18 | PN ---
DATE: 04/14/2018 TIME OF EVALUATION: 7 a.m. SUBJECTIVE: The patient is a lethargic. Communicable in [place], moves all four extremities as per command. LABORATORY DATA: Workup MRI of brain does not show any acute pathology noted. Her workup is all in progress. Clinically, the patient does not have any myelopathy from her fractures in the vertebra. RECOMMENDATION: The patient should be on the DVT prophylaxis, get out of the bed and physical therapy should be initiated as early as possible. Will review MRI francesca The recommended electroencephalogram is still pending. Zaid Vicente MD MTDD
--- NOTE | 2018-04-14 13:48 | MRI ---
Date of service: 04/13/2018 PROCEDURE: MRI BRAIN WITHOUT CONTRAST HISTORY: NEW ISCHEMIC PROCESS COMPARISON: None available. TECHNIQUE: Multiplanar, multisequence MR images of the brain were obtained without intravenous contrast enhancement. FINDINGS: HEMORRHAGE: None DWI: There multiple punctate areas of restricted diffusion at the right frontal lobe superiorly and minimally at the anterior right parietal lobe as well, reflecting acute subacute ischemic event. BRAIN PARENCHYMA: There is questionable restricted diffusion in small areas of the posterior portions bilateral except lobes though not exactly at the posterior segments of the bilateral parietal lobes. Consider possible posttraumatic encephalomalacia in the bilateral parietal lobes with post ischemic changes possibly subacute at the bilateral occipital poles. Diffuse cerebral atrophy chronic microangiopathy are identified manifest by expansion of the ventricular sulcal sternal spaces and periventricular as well as subcortical white matter signal abnormalities throughout the cerebrum. Small areas of cortical edema identified the right frontal lobe superiorly and laterally, potentially also affecting minimal portion of the right parietal lobe anteriorly. Posterior fossa contents appear unremarkable. VENTRICLES: Unremarkable. No hydrocephalus. CRANIUM: Unremarkable. ORBITS: Grossly unremarkable. PARANASAL SINUSES/MASTOIDS: Clear VASCULAR SYSTEM: Skull base flow voids intact. OTHER FINDINGS: None. IMPRESSION: 1. Limited embolic type infarction affects the right frontal greater than anterior right parietal lobe segment as discussed above. No mass effect. No additional acute findings grossly. 2. Posttraumatic or post ischemic encephalomalacia, late subacute or possibly early chronic phase bilateral occipital poles posteriorly as well as posterior segments of bilateral parietal lobes. Lack of hemorrhage may favor ischemic origin. 3. Age-appropriate age related neuro degenerative changes identified.
--- NOTE | 2018-04-14 21:58 | CP.PCM.PN ---
Subjective - Date & Time of Evaluation Date of Evaluation: 04/14/18 Time of Evaluation: 13:30 - Subjective Subjective: patient is somewhat lethargic today. She is somewhat responsive to questions and at times nonresponsive. Patient hasn't MRI of the brain yesterday without contrast which reveals a brain infarct. This may explain the left sided weakness of the left upper extremity. We'll ask for reevaluation by Dr. Varma. Objective - Vital Signs/Intake and Output Vital Signs (last 24 hours): Temp Pulse Resp BP Pulse Ox 98.3 F 97 H 18 100/64 92 L 04/14/18 16:00 04/14/18 16:00 04/14/18 16:00 04/14/18 16:00 04/14/18 16:00 Intake and Output: 04/14/18 04/15/18 18:59 06:59 Output Total 200 Balance -200 - Medications Medications: Current Medications Aspirin (Ecotrin) 81 mg PO DAILY [facility] Enalapril Maleate (Vasotec) 10 mg PO DAILY [facility] Last Admin: 04/14/18 09:19 Dose: 10 mg Ergocalciferol (Drisdol 50,000 Intl Units Cap) 1 cap PO Q7D [facility] Last Admin: 04/11/18 09:58 Dose: 1 cap Hydrochlorothiazide (Hydrodiuril) 25 mg PO DAILY [facility] Last Admin: 04/14/18 09:18 Dose: 25 mg Ceftriaxone Sodium 1 gm/ (Sodium Chloride) 100 mls @ 100 mls/hr IVPB DAILY [facility]; Protocol Last Admin: 04/14/18 09:20 Dose: 100 mls/hr Meclizine HCl (Antivert) 12.5 mg PO DAILY [facility] Last Admin: 04/14/18 09:18 Dose: 12.5 mg Potassium Chloride (Klor-Con 10) 10 meq PO BRK [facility] Stop: 04/16/18 18:01 Last Admin: 04/14/18 09:19 Dose: 10 meq Rosuvastatin Calcium (Crestor) 10 mg PO HS [facility] - Labs Labs: 04/14/18 06:50 04/14/18 06:50 PT 13.6 SECONDS (9.7-12.2) H 04/11/18 07:09 INR 1.2 04/11/18 07:09 APTT 28 SECONDS (21-34) 04/10/18 10:55 - Constitutional Appears: Chronically Ill - Head Exam Head Exam: NORMOCEPHALIC - Eye Exam Eye Exam: Normal appearance Pupil Exam: NORMAL ACCOMODATION - ENT Exam ENT Exam: Normal Exam - Neck Exam Neck Exam: Normal Inspection - Respiratory Exam Respiratory Exam: Decreased Breath Sounds - Cardiovascular Exam Cardiovascular Exam: REGULAR RHYTHM - GI/Abdominal Exam GI & Abdominal Exam: Normal Bowel Sounds - Rectal Exam Rectal Exam: Deferred - Exam External exam: NORMAL EXTERNAL EXAM - Extremities Exam Extremities Exam: Tenderness - Back Exam Back Exam: NORMAL INSPECTION - Neurological Exam Neurological Exam: Awake - Psychiatric Exam Psychiatric exam: Depressed - Skin Skin Exam: Dry Assessment and Plan (1) Compression fracture of body of thoracic vertebra Status: Acute (2) Arteriosclerotic heart disease Status: Acute (3) Osteoarth NOS-other site Status: Acute (4) Anxiety Status: Acute (5) Fever Status: Acute (6) Brainstem infarct, acute Status: Acute
--- NOTE | 2018-04-14 22:44 | CARD ---
APPROVED REPORT Date of service: 04/11/2018 EKG Measurement Heart [id number] <Conclusion> Normal sinus rhythm Left axis deviation Abnormal ECG
[2018-04-15] MEDS ORDERED: Acetaminophen-Codeine 300/30 mg Tab PO ONE (04:02)
[2018-04-15] MEDS: Potassium Chloride 10 mEq ER Tab PO SCH (08:34)
--- NOTE | 2018-04-15 09:22 | PN ---
DATE: 04/15/2018 TIME OF EVALUATION: 6:55 .a.m. NEUROLOGIC PROBLEM: Metabolic encephalopathy, left hemiparesis with abnormal MRI of the brain. PHYSICAL EXAMINATION: GENERAL: The patient is lethargic, arousable, communicable in Ukrainian. VITAL SIGNS: Blood pressure 115/70, mean artery pressure of 85, respiratory rate 18, temperature 98.3 with a pulse rate 76. EXTREMITIES: Moves all four extremities. Mild left hemiparesis still present. The rest of the examination unchanged. LABORATORY DATA: MRI of the brain been reviewed, showed posterior reversible encephalopathy syndrome with right MCA territory ischemic process as well. These all related to possible hypoperfusion syndrome. Her further workup, carotid Doppler is still pending. Echocardiogram also is still pending. Electroencephalogram being reviewed, no acute paroxysmal activities noted, bilateral cerebral slow activities consistent with her clinical presentation. ASSESSMENT AND PLAN: Continue antiplatelets, proper hydration to keep the mean artery pressure of around 100. Continue angiotensin receptor frederick as well. The patient will be followed closely with you. Zaid Vicente MD
[2018-04-15 15:04] LABS: ALBUMIN 24.5 %; ALPHA-1 GLOBULIN 7.7 %
--- NOTE | 2018-04-15 17:48 | CP.PCM.PN ---
Subjective - Date & Time of Evaluation Date of Evaluation: 04/15/18 Time of Evaluation: 17:46 - Subjective Subjective: Patient still with a left sided weakness. 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 Patient needs a CHELSEY. Objective - Vital Signs/Intake and Output Vital Signs (last 24 hours): Temp Pulse Resp BP Pulse Ox 98.9 F 109 H 18 110/76 95 04/15/18 15:33 04/15/18 16:00 04/15/18 15:33 04/15/18 15:33 04/15/18 15:33 Intake and Output: 04/15/18 04/15/18 06:59 18:59 Intake Total 200 Output Total 400 Balance -200 - Medications Medications: Current Medications Aspirin (Ecotrin) 81 mg PO DAILY [facility] Last Admin: 04/15/18 10:34 Dose: 81 mg Enalapril Maleate (Vasotec) 10 mg PO DAILY [facility] Last Admin: 04/15/18 10:33 Dose: 10 mg Ergocalciferol (Drisdol 50,000 Intl Units Cap) 1 cap PO Q7D [facility] Last Admin: 04/11/18 09:58 Dose: 1 cap Hydrochlorothiazide (Hydrodiuril) 25 mg PO DAILY [facility] Last Admin: 04/15/18 10:33 Dose: 25 mg Ceftriaxone Sodium 1 gm/ (Sodium Chloride) 100 mls @ 100 mls/hr IVPB DAILY [facility]; Protocol Last Admin: 04/15/18 10:34 Dose: 100 mls/hr Meclizine HCl (Antivert) 12.5 mg PO DAILY [facility] Last Admin: 04/15/18 10:33 Dose: 12.5 mg Potassium Chloride (Klor-Con 10) 10 meq PO BRK [facility] Stop: 04/16/18 18:01 Last Admin: 04/15/18 08:34 Dose: 10 meq Rosuvastatin Calcium (Crestor) 10 mg PO HS [facility] Last Admin: 04/14/18 22:09 Dose: 10 mg - Labs Labs: 04/14/18 06:50 04/14/18 06:50 PT 13.6 SECONDS (9.7-12.2) H 04/11/18 07:09 INR 1.2 04/11/18 07:09 APTT 28 SECONDS (21-34) 04/10/18 10:55 - Constitutional Appears: No Acute Distress, Chronically Ill - Head Exam Head Exam: NORMAL INSPECTION - Eye Exam Eye Exam: Normal appearance - ENT Exam ENT Exam: Normal Exam - Neck Exam Neck Exam: Normal Inspection - Respiratory Exam Respiratory Exam: Clear to Ausculation Bilateral, NORMAL BREATHING PATTERN - Cardiovascular Exam Cardiovascular Exam: REGULAR RHYTHM - GI/Abdominal Exam GI & Abdominal Exam: Soft, Normal Bowel Sounds - Rectal Exam Rectal Exam: Deferred - Exam Exam: NORMAL INSPECTION - Extremities Exam Additional comments: Left sided weakness. - Back Exam Back Exam: NORMAL INSPECTION - Neurological Exam Neurological Exam: Alert, Awake - Psychiatric Exam Psychiatric exam: Anxious - Skin Skin Exam: Dry, Intact Assessment and Plan (1) Fall Status: Acute (2) Compression fracture of body of thoracic vertebra Status: Acute (3) Elevated troponin I level Status: Resolved (4) Bacteremia Assessment & Plan: On IV antibotic. Status: Acute (5) Brainstem infarct, acute Assessment & Plan: Needs a CHELSEY. Status: Acute
[2018-04-15] MEDS: Acetaminophen-Codeine 300/30 mg Tab PO PRN (19:09)
--- NOTE | 2018-04-15 22:32 | CP.PCM.PN ---
Subjective - Date & Time of Evaluation Date of Evaluation: 04/15/18 Time of Evaluation: 13:20 - Subjective Subjective: patient is confused at times. He continues to have left sided weakness. Patient was evaluated by Dr. Burton.he suggests patient needs CHELSEY. Her seizure is scheduled for tomorrow with the assistance of Josefa Tobar. Objective - Vital Signs/Intake and Output Vital Signs (last 24 hours): Temp Pulse Resp BP Pulse Ox 98.9 F 109 H 18 110/76 95 04/15/18 15:33 04/15/18 16:00 04/15/18 15:33 04/15/18 15:33 04/15/18 15:33 - Medications Medications: Current Medications Acetaminophen/Codeine Phosphate (Tylenol/Codeine 300 Mg/30 Mg) 1 ea PO Q4 PRN PRN Reason: Pain, moderate (4-7) Last Admin: 04/15/18 19:09 Dose: 1 ea Aspirin (Ecotrin) 81 mg PO DAILY [facility] Last Admin: 04/15/18 10:34 Dose: 81 mg Enalapril Maleate (Vasotec) 10 mg PO DAILY [facility] Last Admin: 04/15/18 10:33 Dose: 10 mg Ergocalciferol (Drisdol 50,000 Intl Units Cap) 1 cap PO Q7D [facility] Last Admin: 04/11/18 09:58 Dose: 1 cap Hydrochlorothiazide (Hydrodiuril) 25 mg PO DAILY [facility] Last Admin: 04/15/18 10:33 Dose: 25 mg Ceftriaxone Sodium 1 gm/ (Sodium Chloride) 100 mls @ 100 mls/hr IVPB DAILY [facility]; Protocol Last Admin: 04/15/18 10:34 Dose: 100 mls/hr Meclizine HCl (Antivert) 12.5 mg PO DAILY [facility] Last Admin: 04/15/18 10:33 Dose: 12.5 mg Potassium Chloride (Klor-Con 10) 10 meq PO BRK [facility] Stop: 04/16/18 18:01 Last Admin: 04/15/18 08:34 Dose: 10 meq Rosuvastatin Calcium (Crestor) 10 mg PO HS [facility] Last Admin: 04/15/18 21:32 Dose: 10 mg - Labs Labs: 04/14/18 06:50 04/14/18 06:50 PT 13.6 SECONDS (9.7-12.2) H 04/11/18 07:09 INR 1.2 04/11/18 07:09 APTT 28 SECONDS (21-34) 04/10/18 10:55 - Constitutional Appears: Chronically Ill - Head Exam Head Exam: NORMOCEPHALIC - Eye Exam Eye Exam: Normal appearance Pupil Exam: NORMAL ACCOMODATION - ENT Exam ENT Exam: Normal Exam - Neck Exam Neck Exam: Normal Inspection - Respiratory Exam Respiratory Exam: Decreased Breath Sounds - Cardiovascular Exam Cardiovascular Exam: REGULAR RHYTHM - GI/Abdominal Exam GI & Abdominal Exam: Normal Bowel Sounds - Rectal Exam Rectal Exam: Deferred - Exam External exam: NORMAL EXTERNAL EXAM - Back Exam Back Exam: NORMAL INSPECTION - Neurological Exam Neurological Exam: Awake - Psychiatric Exam Psychiatric exam: Depressed - Skin Skin Exam: Dry Assessment and Plan (1) Compression fracture of body of thoracic vertebra Status: Acute (2) Arteriosclerotic heart disease Status: Acute (3) Osteoarth NOS-other site Status: Acute (4) Anxiety Status: Acute (5) Fever Status: Acute (6) Brainstem infarct, acute Status: Acute
[2018-04-16] MEDS: Acetaminophen-Codeine 300/30 mg Tab PO PRN ×2 (05:57→16:53)
[2018-04-16 06:58] LABS: BASO % 0.7 % (0.0-2.0); EOS # 0.6 K/uL (0.0-0.7); EOS % 9.6 % (0.0-4.0); HEMOGLOBIN 12.3 g/dL (11.0-16.0); LYMPH # 1.4 K/uL (1.0-4.3); MEAN CELL VOLUME 96.1 fL (81.0-99.0); MEAN CORPUSCULAR HEMOGLOBIN 33.1 pg (27.0-31.0); MEAN CORPUSCULAR HGB CONC 34.4 g/dL (33.0-37.0); MEAN PLATELET VOLUME 7.6 fL (7.2-11.7); MONO # 0.6 K/uL (0.0-0.8); MONO % 10.6 % (0.0-10.0); NEUT # 3.3 K/uL (1.8-7.0); NEUT % 56.1 % (50.0-75.0); RBC 3.71 Mil/uL (3.80-5.20); RED CELL DISTRIBUTION WIDTH 12.6 % (11.5-14.5); WHITE BLOOD COUNT 5.9 K/uL (4.8-10.8)
[2018-04-16 07:47] LABS: BLOOD UREA NITROGEN 39 mg/dL (7-17); CALCIUM 9.4 mg/dl (8.6-10.4); GFR NON-AFRICAN AMERICAN > 60
[2018-04-16] MEDS: Potassium Chloride 10 mEq ER Tab PO SCH (08:15)
[2018-04-16 09:57] VITALS: RESP 20
--- NOTE | 2018-04-16 10:53 | EEG ---
DATE: 04/13/2018 This is a 16-channel electroencephalogram of awake and drowsy adult. During the study, photic stimulation was performed. During the study, some movement artifact contaminated the background rhythm intermittently. The photic stimulation did not evoke driving response noted at 2 to 20 Hz. IMPRESSION: This is an abnormal electroencephalogram with persistent slowing throughout the recording suggestive of show bilateral cerebral dysfunction. This is probably secondary to metabolic, vascular, or degenerative process. Please correlate the findings with neurological and radiological studies. Zaid Vicente MD
--- NOTE | 2018-04-16 12:04 | PN ---
DATE: 04/16/2018 TIME OF EVALUATION: 6:55 a.m. SUBJECTIVE: The patient is awake and alert. She knows she is in the hospital. She is tired, moves all four extremities. She has a blister on her left upper lip. PHYSICAL EXAMINATION: VITAL SIGNS: Blood pressure 107/68, mean arterial pressure of 81, respiratory rate 18, temperature 98.3 degree Fahrenheit with pulse rate 75. IMPRESSION: The patient seems to be improving. The patient is on antiplatelets and stroke prophylaxis. Recommended workup is still pending. The patient will be followed closely with you. Zaid Vicente MD
--- NOTE | 2018-04-16 12:13 | VASCLAB ---
Date of service: 04/15/2018 PROCEDURE: Carotid Duplex Exam. HISTORY: Stroke COMPARISON: None available. TECHNIQUE: Grayscale and duplex Doppler evaluation of the cervical carotid and vertebral arteries were performed. The common carotid, carotid bifurcations and cervical Internal Carotid Artery (ICA) and proximal External Carotid Artery (ECA) were evaluated. The vertebral arteries were evaluated for gross patency and flow direction. Report prepared by Beto Carrera, BS, RVT FINDINGS: RIGHT CAROTID ARTERIES: 1. Common Carotid Artery: No significant focal plaque formation of the right common carotid artery. Maximum Peak Systolic velocity: 52 cm/sec: End-diastolic velocity 19 cm/sec. 2. Carotid Bifurcation: plaque formation. Maximum Peak Systolic velocity: 44 cm/sec: End-diastolic velocity 16 cm/sec. 3. Internal Carotid Artery: Plaque description: 3.1. Proximal Segment: Peak systolic velocity 52 cm/sec: End-diastolic velocity 19 cm/sec - % stenosis 0-15% 3.2. Middle Segment: Peak systolic velocity 81 cm/sec: End-diastolic velocity 30 cm/sec - % stenosis 0-15% 3.3. Distal Segment: Peak systolic velocity 40 cm/sec: End-diastolic velocity 16 cm/sec - % stenosis 0-15% 4. External Carotid Artery: No significant focal plaque formation. Peak systolic velocity 59 cm/sec 5. ICA/CCA Ratio: 1.6 LEFT CAROTID ARTERIES: 1. Common Carotid Artery: No significant focal plaque formation of the left common carotid artery. Maximum Peak Systolic velocity: 58 cm/sec: End-diastolic velocity 21 cm/sec. 2. Carotid Bifurcation: plaque formation. Maximum Peak Systolic velocity: 38 cm/sec: End-diastolic velocity 13 cm/sec. 3. Internal Carotid Artery: Plaque description: 3.1. Proximal Segment: Peak systolic velocity 60 cm/sec: End-diastolic velocity 18 cm/sec - % stenosis 0-15% 3.2. Middle Segment: Peak systolic velocity 80 cm/sec: End-diastolic velocity 30 cm/sec - % stenosis 0-15% 3.3. Distal Segment: Peak systolic velocity 41 cm/sec: End-diastolic velocity 17 cm/sec - % stenosis 0-15% 4. External Carotid Artery: No significant focal plaque formation. Peak systolic velocity 76 cm/sec 5. ICA/CCA Ratio: 1.7 VERTEBRAL ARTERIES: 1. Right Vertebral Artery: The right vertebral artery flow direction is antegrade. 2. Left Vertebral Artery: The left vertebral artery flow direction is antegrade. OTHER FINDINGS: 1. Right Brachial Blood pressure: 110 mmHg. 2. Left Brachial Blood pressure: Unable to obtain IMPRESSION: RIGHT: Duplex scan does not suggest hemodynamically significant stenosis of the right extracranial carotid arteries. LEFT: Duplex scan does not suggest hemodynamically significant stenosis of the left extracranial carotid arteries.
[2018-04-16] MEDS ORDERED: Lidocaine 4% (Laryng-O-Jet) Kit MM ONE (12:31)
[2018-04-16] MEDS ORDERED: Propofol 10 mg/ml Inj (20 ML) ONE (13:08)
--- NOTE | 2018-04-16 16:15 | CARD ---
APPROVED REPORT Date of service: 04/16/2018 EXAM: Two-dimensional and M-mode echocardiogram with Doppler and color Doppler. Mitral Valve E/A ratio0.0 TDI E/Lateral E'0.0E/Medial E'0.0 Reason For Test : Rule out cardiac source of emboli. PROCEDURE After obtaining informed consent, patient underwent transesophageal echo in the [employer]. Type of Sedation : Conscious Sedation Sedation was provided by anesthesiologist. Sedation was achieved with intravenously. Transesophageal probe was inserted and advanced into esophagus without difficulty. Echo enhancement indication: R/O Septal defect. Echo enhancement agent administered: Agitated Saline The CHELSEY was performed without complications. Throughout the procedure, the blood pressure, pulse oximetry, cardiac rhythm, and rate were monitored. The patient tolerated the procedure without adverse effects. Recovery from conscious sedation was uneventful and vital signs were stable. LEFT VENTRICLE The left ventricle is normal size. There is normal left ventricular wall thickness. The left ventricular function is normal. The left ventricular ejection fraction is within the normal range. There is normal LV segmental wall motion. No left ventricle or left atria thrombus noted on this study. RIGHT VENTRICLE The right ventricle is normal size. There is normal right ventricular wall thickness. ATRIA The left atrium size is normal. The right atrium size is normal. Injection of contrast documented an interatrial shunt. AORTIC VALVE The aortic valve is normal in structure. There is mild aortic regurgitation. There is no aortic valvular stenosis. MITRAL VALVE The mitral valve is normal in structure. Mitral regurgitation is trace. GREAT VESSELS The aortic root is mildly enlarged. <Conclusion> Injection of contrast documented an interatrial shunt. No left ventricle or left atria thrombus noted on this study.
--- NOTE | 2018-04-16 20:48 | CP.PCM.PN ---
Subjective - Date & Time of Evaluation Date of Evaluation: 04/16/18 Time of Evaluation: 20:44 - Subjective Subjective: Patient has a CHELSEY performed by Dr Guillaume this AM: Mild thickening of the aortic valve. Saline and air bubble injection revealed an atrial septal defect with a right to left shunting. Will start Eliquis 2.5 mg PO BID because head MRI suggested embolic infarcts of the frontal lobe. Objective - Vital Signs/Intake and Output Vital Signs (last 24 hours): Temp Pulse Resp BP Pulse Ox 97.4 F L 86 20 110/72 93 L 04/16/18 09:56 04/16/18 12:09 04/16/18 12:09 04/16/18 12:09 04/16/18 12:09 - Medications Medications: Current Medications Acetaminophen/Codeine Phosphate (Tylenol/Codeine 300 Mg/30 Mg) 1 ea PO Q4 PRN PRN Reason: Pain, moderate (4-7) Last Admin: 04/16/18 16:53 Dose: 1 ea Apixaban (Eliquis) 2.5 mg PO Q12 [facility] Aspirin (Ecotrin) 81 mg PO DAILY [facility] Last Admin: 04/16/18 10:07 Dose: Not Given Enalapril Maleate (Vasotec) 10 mg PO DAILY [facility] Last Admin: 04/16/18 09:58 Dose: Not Given Ergocalciferol (Drisdol 50,000 Intl Units Cap) 1 cap PO Q7D [facility] Last Admin: 04/11/18 09:58 Dose: 1 cap Hydrochlorothiazide (Hydrodiuril) 25 mg PO DAILY [facility] Last Admin: 04/16/18 10:07 Dose: Not Given Meclizine HCl (Antivert) 12.5 mg PO DAILY [facility] Last Admin: 04/16/18 10:07 Dose: Not Given Rosuvastatin Calcium (Crestor) 10 mg PO HS [facility] Last Admin: 04/15/18 21:32 Dose: 10 mg - Labs Labs: 04/16/18 06:51 04/16/18 06:51 PT 13.6 SECONDS (9.7-12.2) H 04/11/18 07:09 INR 1.2 04/11/18 07:09 APTT 28 SECONDS (21-34) 04/10/18 10:55 - Constitutional Appears: Chronically Ill - Head Exam Head Exam: NORMAL INSPECTION - Eye Exam Eye Exam: Normal appearance - ENT Exam ENT Exam: Normal Exam - Neck Exam Neck Exam: Normal Inspection - Respiratory Exam Respiratory Exam: Clear to Ausculation Bilateral, NORMAL BREATHING PATTERN - Cardiovascular Exam Cardiovascular Exam: REGULAR RHYTHM - GI/Abdominal Exam GI & Abdominal Exam: Soft, Normal Bowel Sounds - Rectal Exam Rectal Exam: Deferred - Extremities Exam Additional comments: left sided weakness. - Back Exam Back Exam: NORMAL INSPECTION - Neurological Exam Neurological Exam: Alert, Awake - Psychiatric Exam Psychiatric exam: Normal Affect, Normal Mood - Skin Skin Exam: Dry, Intact, Normal Color, Warm Assessment and Plan (1) Fall Status: Acute (2) Compression fracture of body of thoracic vertebra Status: Acute (3) Elevated troponin I level Status: Resolved (4) Bacteremia Status: Acute (5) Brainstem infarct, acute Assessment & Plan: Noew on Eliquis 2.5 mg PO BID. Status: Acute
--- NOTE | 2018-04-16 22:11 | CP.PCM.PN ---
Subjective - Date & Time of Evaluation Date of Evaluation: 04/16/18 Time of Evaluation: 13:25 - Subjective Subjective: patient had CHELSEY today. A septal defect was detected. Cardiology has placed the patient on anti-coagulation. Patient will receive elaquis 2.5 mg twice a day Objective - Vital Signs/Intake and Output Vital Signs (last 24 hours): Temp Pulse Resp BP Pulse Ox 97.4 F L 86 20 110/72 93 L 04/16/18 09:56 04/16/18 12:09 04/16/18 12:09 04/16/18 12:09 04/16/18 12:09 - Medications Medications: Current Medications Acetaminophen/Codeine Phosphate (Tylenol/Codeine 300 Mg/30 Mg) 1 ea PO Q4 PRN PRN Reason: Pain, moderate (4-7) Last Admin: 04/16/18 16:53 Dose: 1 ea Apixaban (Eliquis) 2.5 mg PO Q12 [facility] Last Admin: 04/16/18 21:18 Dose: 2.5 mg Aspirin (Ecotrin) 81 mg PO DAILY [facility] Last Admin: 04/16/18 10:07 Dose: Not Given Enalapril Maleate (Vasotec) 10 mg PO DAILY [facility] Last Admin: 04/16/18 09:58 Dose: Not Given Ergocalciferol (Drisdol 50,000 Intl Units Cap) 1 cap PO Q7D [facility] Last Admin: 04/11/18 09:58 Dose: 1 cap Hydrochlorothiazide (Hydrodiuril) 25 mg PO DAILY [facility] Last Admin: 04/16/18 10:07 Dose: Not Given Meclizine HCl (Antivert) 12.5 mg PO DAILY [facility] Last Admin: 04/16/18 10:07 Dose: Not Given Rosuvastatin Calcium (Crestor) 10 mg PO HS [facility] Last Admin: 04/16/18 21:18 Dose: 10 mg - Labs Labs: 04/16/18 06:51 04/16/18 06:51 PT 13.6 SECONDS (9.7-12.2) H 04/11/18 07:09 INR 1.2 04/11/18 07:09 APTT 28 SECONDS (21-34) 04/10/18 10:55 - Constitutional Appears: Chronically Ill - Head Exam Head Exam: NORMOCEPHALIC - Eye Exam Eye Exam: Normal appearance Pupil Exam: NORMAL ACCOMODATION - ENT Exam ENT Exam: Normal Exam - Neck Exam Neck Exam: Normal Inspection - Respiratory Exam Respiratory Exam: Decreased Breath Sounds - Cardiovascular Exam Cardiovascular Exam: REGULAR RHYTHM - GI/Abdominal Exam GI & Abdominal Exam: Normal Bowel Sounds - Rectal Exam Rectal Exam: Deferred - Exam External exam: NORMAL EXTERNAL EXAM - Extremities Exam Extremities Exam: Normal Inspection - Back Exam Back Exam: NORMAL INSPECTION - Neurological Exam Neurological Exam: Oriented x3 - Psychiatric Exam Psychiatric exam: Depressed - Skin Skin Exam: Dry Assessment and Plan (1) Compression fracture of body of thoracic vertebra Status: Acute (2) Arteriosclerotic heart disease Status: Acute (3) Osteoarth NOS-other site Status: Acute (4) Anxiety Status: Acute (5) Fever Status: Acute (6) Brainstem infarct, acute Status: Acute
[2018-04-17] MEDS: Acetaminophen-Codeine 300/30 mg Tab PO PRN (06:37)
--- NOTE | 2018-04-17 11:50 | CP.PCM.PN ---
Subjective - Date & Time of Evaluation Date of Evaluation: 04/17/18 Time of Evaluation: 11:30 Objective - Vital Signs/Intake and Output Vital Signs (last 24 hours): Temp Pulse Resp BP Pulse Ox 98.2 F 90 20 116/80 98 04/17/18 07:00 04/17/18 07:00 04/17/18 07:00 04/17/18 09:43 04/17/18 07:00 - Medications Medications: Current Medications Acetaminophen/Codeine Phosphate (Tylenol/Codeine 300 Mg/30 Mg) 1 ea PO Q4 PRN PRN Reason: Pain, moderate (4-7) Last Admin: 04/17/18 06:37 Dose: 1 ea Apixaban (Eliquis) 2.5 mg PO Q12 [facility] Last Admin: 04/17/18 09:43 Dose: 2.5 mg Aspirin (Ecotrin) 81 mg PO DAILY [facility] Last Admin: 04/17/18 09:43 Dose: 81 mg Enalapril Maleate (Vasotec) 10 mg PO DAILY [facility] Last Admin: 04/17/18 09:43 Dose: 10 mg Ergocalciferol (Drisdol 50,000 Intl Units Cap) 1 cap PO Q7D [facility] Last Admin: 04/11/18 09:58 Dose: 1 cap Hydrochlorothiazide (Hydrodiuril) 25 mg PO DAILY [facility] Last Admin: 04/16/18 10:07 Dose: Not Given Meclizine HCl (Antivert) 12.5 mg PO DAILY [facility] Last Admin: 04/17/18 09:43 Dose: 12.5 mg Rosuvastatin Calcium (Crestor) 10 mg PO HS [facility] Last Admin: 04/16/18 21:18 Dose: 10 mg - Labs Labs: 04/16/18 06:51 04/16/18 06:51 PT 13.6 SECONDS (9.7-12.2) H 04/11/18 07:09 INR 1.2 04/11/18 07:09 APTT 28 SECONDS (21-34) 04/10/18 10:55
[2018-04-17 17:58] VITALS: BP 106/71; PULSE 91; TEMP 98; O2SAT 96
--- NOTE | 2018-04-17 18:54 | CP.PCM.DIS ---
Provider - Provider Date of Admission: 04/10/18 12:03 Attending physician: Venancio Strong MD Consults: 04/10/18 12:02 Cardiology Consult Stat Comment: Consulting Provider: Paul Burton Consulting Physician: Paul Burton Reason for Consult: positive trops 04/10/18 19:28 Physician Consult Routine Comment: Consulting Provider: Zaid Vicente Consulting Physician: Zaid Vicente Reason for Consult: multiple compression fractures Time Spent in preparation of Discharge (in minutes): 26 Diagnosis - Discharge Diagnosis (1) Compression fracture of body of thoracic vertebra Status: Acute (2) Arteriosclerotic heart disease Status: Acute (3) Osteoarth NOS-other site Status: Acute (4) Anxiety Status: Acute (5) Fever Status: Acute (6) Brainstem infarct, acute Status: Acute Hospital Course - Lab Results Lab Results: Micro Results 04/12/18 11:46 Blood-Venous Blood Culture - Final NO GROWTH AFTER 5 DAYS 04/12/18 11:46 Blood-Venous Gram Stain - Final TEST NOT PERFORMED 04/12/18 09:40 Blood-Venous Blood Culture - Final NO GROWTH AFTER 5 DAYS 04/12/18 09:40 Blood-Venous Gram Stain - Final TEST NOT PERFORMED 04/10/18 10:55 Blood Blood Culture - Final NO GROWTH AFTER 5 DAYS 04/10/18 10:55 Blood Gram Stain - Final TEST NOT PERFORMED 04/10/18 11:05 Blood Blood Culture - Final Coagulase Neg Staphylococcus 04/10/18 11:05 Blood Gram Stain - Final 04/10/18 11:48 Urine,Catheterized Urine Culture - Final No Growth (<1,000 CFU/ML) Most Recent Lab Values WBC 5.9 K/uL (4.8-10.8) 04/16/18 06:51 RBC 3.71 Mil/uL (3.80-5.20) L 04/16/18 06:51 Hgb 12.3 g/dL (11.0-16.0) 04/16/18 06:51 Hct 35.7 % (34.0-47.0) 04/16/18 06:51 MCV 96.1 fL (81.0-99.0) 04/16/18 06:51 MCH 33.1 pg (27.0-31.0) H 04/16/18 06:51 MCHC 34.4 g/dL (33.0-37.0) 04/16/18 06:51 RDW 12.6 % (11.5-14.5) 04/16/18 06:51 Plt Count 189 K/uL (130-400) 04/16/18 06:51 MPV 7.6 fL (7.2-11.7) 04/16/18 06:51 Neut % (Auto) 56.1 % (50.0-75.0) 04/16/18 06:51 Lymph % (Auto) 23.0 % (20.0-40.0) 04/16/18 06:51 [place] % (Auto) 10.6 % (0.0-10.0) H 04/16/18 06:51 Eos % (Auto) 9.6 % (0.0-4.0) H 04/16/18 06:51 Baso % (Auto) 0.7 % (0.0-2.0) 04/16/18 06:51 Neut # (Auto) 3.3 K/uL (1.8-7.0) 04/16/18 06:51 Lymph # (Auto) 1.4 K/uL (1.0-4.3) 04/16/18 06:51 [place] # (Auto) 0.6 K/uL (0.0-0.8) 04/16/18 06:51 Eos # (Auto) 0.6 K/uL (0.0-0.7) 04/16/18 06:51 Baso # (Auto) 0.0 K/uL (0.0-0.2) 04/16/18 06:51 Neutrophils % (Manual) 87 % (50-75) H 04/10/18 10:55 Lymphocytes % (Manual) 8 % (20-40) L 04/10/18 10:55 Monocytes % (Manual) 5 % (0-10) 04/10/18 10:55 Differential Comment 04/11/18 07:09 Platelet Estimate Normal (NORMAL) 04/10/18 10:55 Polychromasia Slight 04/10/18 10:55 Anisocytosis (manual) Slight 04/10/18 10:55 PT 13.6 SECONDS (9.7-12.2) H 04/11/18 07:09 INR 1.2 04/11/18 07:09 APTT 28 SECONDS (21-34) 04/10/18 10:55 pO2 51 mm/Hg (30-55) 04/10/18 14:08 VBG pH 7.47 (7.32-7.43) H 04/10/18 14:08 VBG pCO2 35 mmHg (40-60) L 04/10/18 14:08 VBG HCO3 26.3 mmol/L 04/10/18 14:08 VBG Total CO2 26.6 mmol/L (22-28) 04/10/18 14:08 VBG O2 Sat (Calc) 93.0 % (40-65) H 04/10/18 14:08 VBG Base Excess 2.1 mmol/L (0.0-2.0) H 04/10/18 14:08 VBG Potassium 3.3 mmol/L (3.6-5.2) L 04/10/18 14:08 Sodium 139.0 mmol/l (132-148) 04/10/18 14:08 Chloride 107.0 mmol/L (98-107) 04/10/18 14:08 Glucose 127 mg/dl (65-105) H 04/10/18 14:08 Lactate 1.9 mmol/L (0.7-2.1) 04/10/18 14:08 Sodium 135 mmol/L (132-148) 04/16/18 06:51 Potassium 3.7 mmol/L (3.6-5.2) 04/16/18 06:51 Chloride 95 mmol/L (98-107) L 04/16/18 06:51 Carbon Dioxide 33 mmol/L (22-30) H 04/16/18 06:51 Anion Gap 12 (10-20) 04/16/18 06:51 BUN 39 mg/dL (7-17) H 04/16/18 06:51 Creatinine 0.6 mg/dL (0.7-1.2) L 04/16/18 06:51 Est GFR ( Amer) > 60 04/16/18 06:51 Est GFR (Non-Af Amer) > 60 04/16/18 06:51 Random Glucose 92 mg/dL (65-105) 04/16/18 06:51 Calcium 9.4 mg/dl (8.6-10.4) 04/16/18 06:51 Phosphorus 3.0 mg/dL (2.5-4.5) 04/10/18 10:55 Magnesium 1.8 mg/dL (1.6-2.3) 04/10/18 10:55 Total Bilirubin 1.4 mg/dL (0.2-1.3) H 04/10/18 10:55 AST 64 U/L (14-36) H 04/10/18 10:55 ALT 24 U/L (9-52) 04/10/18 10:55 Alkaline Phosphatase 73 U/L (38-126) 04/10/18 10:55 Total Creatine Kinase 86 U/L (30-135) 04/13/18 13:49 CK-MB (Mass) 0.92 ng/mL (0.0-3.38) 04/10/18 23:00 Troponin I 0.0930 ng/mL (0.00-0.120) 04/13/18 13:49 NT-Pro-B Natriuret Pep 1880 pg/mL (0-900) H 04/10/18 21:35 Total Protein 7.8 g/dL (6.3-8.3) 04/10/18 10:55 Total Protein (PEP) 5.8 g/dL (6.1-8.1) L 04/11/18 07:09 Albumin 4.6 g/dL (3.5-5.0) 04/10/18 10:55 Albumin (PEP) 3.2 g/dL (3.8-4.8) L 04/11/18 07:09 Globulin 3.2 gm/dL (2.2-3.9) 04/10/18 10:55 Albumin/Globulin Ratio 0.32 04/11/18 09:16 Dtkrm-2-Kligwpvja 7.7 % 04/11/18 09:16 Qyxke-4-Cvohappku 28.1 % 04/11/18 09:16 Beta Globulins 29.7 % 04/11/18 09:16 Xdgk-8-Vnbftiaf 0.4 g/dL (0.4-0.6) 04/11/18 07:09 Bhav-6-Eakfyblz 0.4 g/dL (0.2-0.5) 04/11/18 07:09 Gamma Globulins 10.0 % 04/11/18 09:16 Abnorm Protein Band 1 TEST NOT PERFORMED 04/11/18 07:09 Abnorm Protein Band 2 TEST NOT PERFORMED 04/11/18 07:09 Abnorm Protein Band 3 TEST NOT PERFORMED 04/11/18 07:09 25-OH Vitamin D Total 35.2 NG/ML (30.0-100.0) 04/11/18 08:47 Venous Blood Potassium 3.3 mmol/L (3.6-5.2) L 04/10/18 14:08 Urine Color Straw (YELLOW) 04/10/18 11:22 Urine Clarity Clear (Clear) 04/10/18 11:22 Urine pH 8.0 (5.0-8.0) 04/10/18 11:22 Ur Specific [place] 1.012 (1.003-1.030) 04/10/18 11:22 Urine Protein Negative mg/dL (NEGATIVE) 04/10/18 11:22 Urine Glucose (UA) Normal mg/dL (Normal) 04/10/18 11:22 Urine Ketones Negative mg/dL (NEGATIVE) 04/10/18 11:22 Urine Blood Negative (NEGATIVE) 04/10/18 11:22 Urine Nitrate Negative (NEGATIVE) 04/10/18 11:22 Urine Bilirubin Negative (NEGATIVE) 04/10/18 11:22 Urine Urobilinogen Normal mg/dL (0.2-1.0) 04/10/18 11:22 Ur Leukocyte Esterase Neg [place]/uL (Negative) 04/10/18 11:22 Urine WBC (Auto) < 1 /hpf (0-5) 04/10/18 11:22 Urine RBC (Auto) 3 /hpf (0-3) 04/10/18 11:22 Ur Squamous Epith Cells < 1 /hpf (0-5) 04/10/18 11:22 Ur Random Creatinine 126 mg/dL (20-275) 04/11/18 09:16 U Random Total Protein 286 mg/g creat (21-161) H 04/11/18 09:16 Urine Albumin (PEP) 24.5 % 04/11/18 09:16 Ur Protein Fractions See note 04/11/18 09:16 LORENA & SPEP Interp See note 04/11/18 07:09 Urine Immunofixation Not detected (Not Detected) 04/11/18 09:16 Cycl Citrul Peptide IgG <16 Units 04/10/18 21:35 Complement C3 129.0 mg/dL (88.0-165.0) 04/13/18 13:49 Complement C4 38.0 mg/dL (14.0-44.0) 04/13/18 13:49 Influenza Typ A,B (EIA) Negative for flu a/b (NEGATIVE) 04/10/18 12:18 Discharge Exam - Head Exam Head Exam: NORMOCEPHALIC - Eye Exam Eye Exam: Normal appearance Pupil Exam: NORMAL ACCOMODATION - ENT Exam ENT Exam: Normal Exam - Neck Exam Neck exam: Normal Inspection - Respiratory Exam Respiratory Exam: Decreased Breath Sounds - Cardiovascular Exam Cardiovascular Exam: REGULAR RHYTHM - GI/Abdominal Exam GI & Abdominal Exam: Normal Bowel Sounds - Rectal Exam Rectal Exam: Deferred - Exam External exam: NORMAL EXTERNAL EXAM - Extremities Exam Extremities exam: tenderness - Back Exam Back exam: NORMAL INSPECTION - Neurological Exam Neurological exam: Oriented x3 - Psychiatric Exam Psychiatric exam: Depressed - Skin Skin Exam: Dry Discharge Plan - Follow Up Plan Condition: GUARDED Disposition: REHAB FACILITY/REHAB UNIT Instructions: Osteoarthritis, Low Back Pain in Adults, Preventing Falls in the Older Adult, Stroke (DC), Apixaban Additional Instructions: Please contrinue medication as per med. rec. Patient needs to f/u with Dr. strong office upon discharge from [facility] Patient needs to f/u with Dr. Jules sosa after discharge from [facility] ( f/u visit) call and make appointment Patient needs to f/u with a [employer] after discharge from [facility]( [facility]) Please do labs weekly or facility protocol Referrals: Venancio Strong MD [Staff Provider] - Zaid Vicente MD [Staff Provider] -
== END 2018-04-17 17:00 | DRG 542 ==
LOC: C.ER 10:40 → C.9E 12:03 → C.6T 20:57
PROVIDERS: ADMIT Internal Medicine; ATTEND Internal Medicine
DX: M48.54XA Collapsed vertebra, not elsewhere classified, thoracic region, initial encounter for fracture (principal); I63.9 Cerebral infarction, unspecified; G93.41 Metabolic encephalopathy; G81.94 Hemiplegia, unspecified affecting left nondominant side; R78.81 Bacteremia; Q21.1 Atrial septal defect; F41.9 Anxiety disorder, unspecified; G62.9 Polyneuropathy, unspecified; I10 Essential (primary) hypertension; I25.10 Atherosclerotic heart disease of native coronary artery without angina pectoris; M81.0 Age-related osteoporosis without current pathological fracture; R29.6 Repeated falls; W19.XXXA Unspecified fall, initial encounter; Y92.009 Unspecified place in unspecified non-institutional (private) residence as the place of occurrence of the external cause; R50.9 Fever, unspecified; R74.8 Abnormal levels of other serum enzymes